=== PATIENT | male | born 1940 | race Caucasian/White ===

== ENCOUNTER → 2018-02-03 16:08 | Outpatient (CLI) | payer MEDICARE, BC, SELFPAY ==
[2018-02-03 16:44] LABS: Add Manual Diff / Slide Review NO; Basophils Percent Auto 0.4 % (0-2); Eosinophils Percent Auto 1.3 % (2-4); Hematocrit 44.6 % (41-53); Hemoglobin 15.3 g/dL (13.5-17.5); Lymphocytes Percent Auto 19.1 % (25-40); Mean Corpuscular HGB Conc 34.3 % (30-36); Mean Corpuscular Hemoglobin 30.4 PG (26-34); Mean Corpuscular Volume 88.7 fL (80-100); Monocytes Percent Auto 9.3 % (3-14); Neutrophils Absolute Auto 5100 /uL (3000-5900); Neutrophils Percent Auto 69.9 % (50-75); Platelet Count 156 X10^3/uL (150-400); Red Blood Cell Count 5.03 X10^6/uL (4.5-5.9); White Blood Cell Count 7.3 X10^3/uL (4.5-11.0)
[2018-02-03 17:57] LABS: Thyroid Stimulating Hormone 3.48 uIU/mL (0.47-4.68)
[2018-02-03 19:38] LABS: Folate 16.1 ng/mL (2.76-20.0); Vitamin B12 375 pg/mL (239-931)
== END ==
PROVIDERS: Family Provider Internal Medicine; PCP Internal Medicine; Visit Provider Student in an Organized Health Care Education/Training Program
DX: R53.83 Other fatigue (principal)
CPT/HCPCS: 36415; 82607; 82746; 84443; 85025; 85045

== ENCOUNTER 2018-02-28 19:41 | Emergency (ER) | payer MEDICARE, BC, SELFPAY ==
[2018-02-28 19:45] VITALS: BP 165/90; PULSE 68; RESP 18; TEMP 37; O2SAT 99; BMI 25.7
--- NOTE | 2018-02-28 20:08 | ED.CHESTPAIN ---
HPI - Chest Pain <Mariah Iniguez PA-C - Last Filed: 02/28/18 22:25> General Chief Complaint: Chest Pain Stated Complaint: LAFT ARM PAIN Time Seen by Provider: 02/28/18 20:08 Source: patient and family Mode of arrival: ambulatory Limitations: no limitations History of Present Illness HPI narrative: This 77-year-old comes in today due to 5 min of ?constricted?, squeezing sensation radiating all the way down his left arm for about 5 min. This started prior to arrival. He states that prior to this, he had done a set of throwing exercises with 15 lb weights, which he just started doing again. He states that he sat down, and the pain started at rest. He did not have any chest pain. He does not have any palpitations. He states that he took a 20 min walk prior to dinner with no problems. He states he does have chronic dyspnea especially with exertion, however this has been going on for at least a couple of months without any change today. 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 He states he is not symptomatic from this but notices on his monitor. He tends to have a little bit of swelling in his right leg more than left. This has not changed recently. He does not have any new pain in the legs. He does not have any nausea or vomiting and states his appetite is good. He has not had abdominal pain, no recent weight gain or other complaints on systems review. Related Data Home Medications Medication Instructions Recorded Confirmed Atorvastatin Calcium (Lipitor) 10 mg PO QDAY #0 03/10/10 COENZYME Q10/VITAMIN E (CO-Q-10 200 mg PO QDAY #0 02/21/13 200mg) Fish Oil 1,000 mg PO TID #0 02/21/13 selenium 100 mcg PO QDAY #0 02/21/13 Allergies Allergy/AdvReac Type Severity Reaction Status Date / Time aspirin [ASPIRIN] Allergy Severe ANEMIA Unverified 11/03/17 11:48 NSAIDS (Non-Steroidal Allergy Severe GI Bleeding Unverified 11/03/17 11:48 Anti-Inflamma [NSAIDS (NON-STEROIDAL ANTI-INFLAMMA] Penicillins Allergy Severe ASTHMA Unverified 11/03/17 11:48 Review of Systems <Mariah Iniguez PA-C - Last Filed: 02/28/18 22:25> Review of Systems All systems reviewed & are unremarkable except as noted in HPI and below Exam <Mariah Iniguez PA-C - Last Filed: 02/28/18 22:25> Narrative Exam Narrative: GENERAL APPEARANCE: Patient sitting comfortably, in no distress. HEENT: EOMI NECK/THYROID: Neck supple, no JVD. LUNGS: Clear to auscultation bilaterally. HEART: Regular rate and rhythm irregular with low-pitched II/ murmur ABDOMEN: Soft, NT, ND, + BS x 4 quadrants EXTREMITIES: No cyanosis, trace edema on the right, none on the left. Small varicosities noted. No calf tenderness NEUROLOGIC: Alert and oriented, normal speech and coordination. MUSCULOSKELETAL: No tenderness over the chest or left shoulder. Able to fully flex and extend the left shoulder without tenderness Initial Vital Signs Initial Vital Signs: Vital Signs Temperature 98.6 F 02/28/18 19:45 Pulse Rate 68 02/28/18 19:45 Respiratory Rate 18 02/28/18 19:45 Blood Pressure 165/90 H 02/28/18 19:45 Pulse Oximetry 99 02/28/18 19:45 <Corky Adkins MD - Last Filed: 03/01/18 02:06> Initial Vital Signs Initial Vital Signs: Vital Signs Temperature 98.6 F 02/28/18 19:45 Pulse Rate 68 02/28/18 19:45 Respiratory Rate 18 02/28/18 19:45 Blood Pressure 165/90 H 02/28/18 19:45 Pulse Oximetry 99 02/28/18 19:45 Scores <Mariah Iniguez PA-C - Last Filed: 02/28/18 22:25> CHADS-VASc Congestive heart failure: no Hypertension: yes Age 75 years or older: yes Diabetes mellitus: yes Stroke, TIA, or TE: no Vascular disease: no Age 65 to 74 years: no Sex category (female): Male CHADS-VASc Score: 4 Course <Mariah Iniguez PA-C - Last Filed: 02/28/18 22:25> Additional Information: I reviewed workup and findings with Dr. Adkins who is in agreement that patient may follow up as an outpatient. Patient's brief symptoms completely resolved prior to arrival. He states that he is feeling well currently. Workup is negative aside from atrial fibrillation on EKG which per his history appears to be new since previous hospitalization. He also describes intermittent low pulse rates at home on his monitor though he is asymptomatic from this. We did discuss usual use of anticoagulation given his chads Vasc score of 4, however he also has a history of severe GI bleed x2 when on ASA. He elects not to start any anticoagulant tonight. He will go to his previously planned appointment with Dr. Kevin on Wednesday and plan to discuss further at that time. He agreed to return if any new or worsening symptoms again in the interim Orders Ordered: ED Orders 02/28/18 20:00 B Type Natriuretic Peptide Stat Complete Blood Count AUTO DIFF Stat Comprehensive Metabolic Panel Stat Troponin & CK Cardiac Panel Stat 02/28/18 20:21 XR chest 1V Stat Vital Signs - 8 hr 02/28/18 19:45 02/28/18 20:56 02/28/18 21:40 Temperature 98.6 F Pulse Rate 68 67 64 Respiratory Rate 18 Blood Pressure 165/90 H 141/84 H Blood Pressure [Left Arm] 151/85 H Pulse Oximetry 99 95 98 <Corky Adkins MD - Last Filed: 03/01/18 02:06> Orders Ordered: ED Orders 02/28/18 20:00 B Type Natriuretic Peptide Stat Complete Blood Count AUTO DIFF Stat Comprehensive Metabolic Panel Stat Troponin & CK Cardiac Panel Stat 02/28/18 20:21 XR chest 1V Stat Vital Signs - 8 hr 02/28/18 19:45 02/28/18 20:56 02/28/18 21:40 Temperature 98.6 F Pulse Rate 68 67 64 Respiratory Rate 18 Blood Pressure 165/90 H 141/84 H Blood Pressure [Left Arm] 151/85 H Pulse Oximetry 99 95 98 MDM - Chest Pain <Mariah Iniguez PA-C - Last Filed: 02/28/18 22:25> Lab Data Attestation: I reviewed the patient's lab results. Result diagrams: 02/28/18 20:00 02/28/18 20:00 Lab Results 02/28/18 02/28/18 Range/Units 20:00 20:00 WBC 7.5 (4.5-11.0) X10^3/uL RBC 5.26 (4.5-5.9) X10^6/uL Hgb 16.0 (13.5-17.5) g/dL Hct 46.3 (41-53) % MCV 87.9 (80-100) fL MCH 30.4 (26-34) PG MCHC 34.6 (30-36) % RDW 14.3 (11.6-14.8) % Plt Count 173 (150-400) X10^3/uL Neut % (Auto) 66.3 (50-75) % Lymph % (Auto) 22.6 L (25-40) % [place] % (Auto) 9.0 (3-14) % Eos % (Auto) 1.6 L (2-4) % Baso % (Auto) 0.5 (0-2) % Neut # (Auto) 5000 (2230-4280) /uL Sodium 140 (137-145) mmol/L Potassium 4.2 (3.4-5.1) mmol/L Chloride 100 (98-107) mmol/L Carbon Dioxide 27 (22-32) mmol/L BUN 28 H (9-20) mg/dL Creatinine 1.00 (0.66-1.25) mg/dL Estimated GFR > 60.0 (>60) mL/min BUN/Creatinine Ratio 28.0 H (6-22) Glucose 119 H (80-110) mg/dL Calcium 9.4 (8.4-10.2) mg/dL Total Bilirubin 0.6 (0.2-1.3) mg/dL AST 33 (17-59) IU/L ALT 31 (21-72) IU/L Alkaline Phosphatase 73 (38-126) U/L Total Creatine Kinase 132 (55-170) U/L CK-MB (CK-2) 3.19 H (<2.37) ng/mL CK-MB (CK-2) Rel Index 2.4 (1.5-5.0) % Troponin I 0.013 (0.01-0.034) ng/mL B-Natriuretic Peptide 108.0 H (<100) Total Protein 7.1 (6.3-8.2) g/dL Albumin 4.6 (3.5-5.0) g/dL Globulin 2.5 (1.7-4.1) g/dL Albumin/Globulin Ratio 1.8 (1.0-2.8) Imaging Data Chest x-ray: Radiologist's impression: View Report History Print [address] [address] XRay Report Signed Patient: Mk Pinzon MR#: [id number] : 1940 Acct:[id number] Age/Sex: 77 / M Date of Service: 02/28/18 Loc: ED Accession Number: [id number] Procedure: XR chest 1V Ordering Provider: Mariah Iniguez P.A-C PROCEDURE: XR CHEST 1V INDICATIONS: L. UE pain, cardiac history TECHNIQUE: One view of the chest was acquired. COMPARISON: [facility], , CHEST 2 VIEW, 08/19/2016, 11:58. [facility], , CHEST 1 VIEW, 07/28/2017, 17:56. FINDINGS: Surgical changes and devices: Sternotomy wires. Lungs and pleura: No pleural effusions or pneumothorax. Lungs are clear. High density calcified granuloma projecting in the left apex is grossly unchanged. Mediastinum: Mediastinal contours appear normal. Heart size is normal. Bones and chest wall: No suspicious bony lesions. Overlying soft tissues appear unremarkable. IMPRESSION: No acute disease. Dictated by: Partha Bell M.D. on 02/28/2018 at 20:38 Approved by: Partha Bell M.D. on 02/28/2018 at 20:39 ECG Data Attestation: I personally reviewed and interpreted this ECG as follows: (Atrial fibrillation with rate 66, chronic ST changes. EKG 2. Regular supraventricular rhythm with rate 60s 3) Prior ECG tracings: available for review <Corky Adkins MD - Last Filed: 03/01/18 02:06> Lab Data Lab Results 02/28/18 02/28/18 Range/Units 20:00 20:00 WBC 7.5 (4.5-11.0) X10^3/uL RBC 5.26 (4.5-5.9) X10^6/uL Hgb 16.0 (13.5-17.5) g/dL Hct 46.3 (41-53) % MCV 87.9 (80-100) fL MCH 30.4 (26-34) PG MCHC 34.6 (30-36) % RDW 14.3 (11.6-14.8) % Plt Count 173 (150-400) X10^3/uL Neut % (Auto) 66.3 (50-75) % Lymph % (Auto) 22.6 L (25-40) % [place] % (Auto) 9.0 (3-14) % Eos % (Auto) 1.6 L (2-4) % Baso % (Auto) 0.5 (0-2) % Neut # (Auto) 5000 (6467-3205) /uL Sodium 140 (137-145) mmol/L Potassium 4.2 (3.4-5.1) mmol/L Chloride 100 (98-107) mmol/L Carbon Dioxide 27 (22-32) mmol/L BUN 28 H (9-20) mg/dL Creatinine 1.00 (0.66-1.25) mg/dL Estimated GFR > 60.0 (>60) mL/min BUN/Creatinine Ratio 28.0 H (6-22) Glucose 119 H (80-110) mg/dL Calcium 9.4 (8.4-10.2) mg/dL Total Bilirubin 0.6 (0.2-1.3) mg/dL AST 33 (17-59) IU/L ALT 31 (21-72) IU/L Alkaline Phosphatase 73 (38-126) U/L Total Creatine Kinase 132 (55-170) U/L CK-MB (CK-2) 3.19 H (<2.37) ng/mL CK-MB (CK-2) Rel Index 2.4 (1.5-5.0) % Troponin I 0.013 (0.01-0.034) ng/mL B-Natriuretic Peptide 108.0 H (<100) Total Protein 7.1 (6.3-8.2) g/dL Albumin 4.6 (3.5-5.0) g/dL Globulin 2.5 (1.7-4.1) g/dL Albumin/Globulin Ratio 1.8 (1.0-2.8) Discharge Plan Departure Patient Disposition: Home, Self-Care Clinical Impression: Left arm pain, Atrial fibrillation by electrocardiogram Discharge Date/Time: 02/28/18 21:41 Interventions: ED Discharge Assessment Last Done: 02/28/18 21:40 Instructions: DI for Atrial Fibrillation Activity Restrictions/Additional Instructions: the reason for your left arm pain that you had a little earlier is not clear. It may have been associated with your exercises that you were doing prior to it starting. There is no indication of a new heart problem causing this based on our evaluation tonight however we did notice that you have atrial fibrillation, which is an irregular heartbeat. Since you had a fast heart beat or pulse rate in the past and more recently has been noticing some slow heart rates when you check on her home monitor off and on, it is likely that this has been going on for some time now. As we talked about, this may happen frequently, or not at all in a given day. Usually for people with your risk factors, we used blood thinner type of medication to reduce stroke risk, however after our discussion tonight, you have expressed that you prefer to remain off of these type of medications due to your history of stomach bleeding when you were on aspirin in the past. You had significant bleeding and this is reasonable as well. Please keep your appointment with Dr. Kevin so that you can further assess in light of your previous heart history and determine what type of treatment may be needed. You should follow up here as we talked about if you have any new or acutely worsening symptoms in the interim. Prescriptions: No Action Atorvastatin Calcium (Lipitor) 10 mg PO QDAY Qty: 0 RF: 0 COENZYME Q10/VITAMIN E (CO-Q-10 200mg) 200 mg PO QDAY Qty: 0 RF: 0 Fish Oil 1,000 mg PO TID Qty: 0 RF: 0 selenium 200 MCG tablet 100 mcg PO QDAY Qty: 0 RF: 0 Referrals: Costa Tellez MD [Primary Care Provider] - Stewart Kevin MD [Physician] - <Corky Adkins MD - Last Filed: 03/01/18 02:06> Cosign ED Attending Cosignature Attestation: I was available in the ER for verbal consultation and to physically see the patient if need be. I agree with the evaluation and treatment plan.
--- NOTE | 2018-02-28 20:21 | DI.RAD.S_ITS ---
PROCEDURE: XR CHEST 1V INDICATIONS: L. UE pain, cardiac history TECHNIQUE: One view of the chest was acquired. COMPARISON: [facility], , CHEST 2 VIEW, 08/19/2016, 11:58. [facility], , CHEST 1 VIEW, 07/28/2017, 17:56. FINDINGS: Surgical changes and devices: Sternotomy wires. Lungs and pleura: No pleural effusions or pneumothorax. Lungs are clear. High density calcified granuloma projecting in the left apex is grossly unchanged. Mediastinum: Mediastinal contours appear normal. Heart size is normal. Bones and chest wall: No suspicious bony lesions. Overlying soft tissues appear unremarkable. IMPRESSION: No acute disease. Dictated by: Partha Bell M.D. on 02/28/2018 at 20:38 Approved by: Partha Bell M.D. on 02/28/2018 at 20:39
[2018-02-28 20:31] LABS: Add Manual Diff / Slide Review NO; Basophils Percent Auto 0.5 % (0-2); Eosinophils Percent Auto 1.6 % (2-4); Hematocrit 46.3 % (41-53); Lymphocytes Percent Auto 22.6 % (25-40); Mean Corpuscular HGB Conc 34.6 % (30-36); Mean Corpuscular Hemoglobin 30.4 PG (26-34); Mean Corpuscular Volume 87.9 fL (80-100); Neutrophils Absolute Auto 5000 /uL (3000-5900); Neutrophils Percent Auto 66.3 % (50-75); Platelet Count 173 X10^3/uL (150-400); Red Blood Cell Count 5.26 X10^6/uL (4.5-5.9); Red Cell Distribution Width 14.3 % (11.6-14.8); White Blood Cell Count 7.5 X10^3/uL (4.5-11.0)
[2018-02-28 20:38] LABS: Alanine Aminotransferase 31 IU/L (21-72); Albumin 4.6 g/dL (3.5-5.0); Albumin Globulin Ratio 1.8 (1.0-2.8); Alkaline Phosphatase 73 U/L (38-126); Aspartate Aminotransferase 33 IU/L (17-59); Bilirubin Total 0.6 mg/dL (0.2-1.3); Blood Urea Nitrogen 28 mg/dL (9-20); Calcium 9.4 mg/dL (8.4-10.2); Carbon Dioxide 27 mmol/L (22-32); Chloride 100 mmol/L (98-107); Creatine Kinase 132 U/L (55-170); Estimated Glomerular Filt Rate > 60.0 mL/min (>60); Globulin 2.5 g/dL (1.7-4.1); Glucose 119 mg/dL (80-110); HEMOLYSIS 34 (0-50); Potassium 4.2 mmol/L (3.4-5.1); Sodium 140 mmol/L (137-145); Total Protein 7.1 g/dL (6.3-8.2)
--- NOTE | 2018-02-28 20:42 | ED_ITS ---
HPI - Chest Pain <Mariah Iniguez PA-C - Last Filed: 02/28/18 22:25> General Chief Complaint: Chest Pain Stated Complaint: LAFT ARM PAIN Time Seen by Provider: 02/28/18 20:08 Source: patient and family Mode of arrival: ambulatory Limitations: no limitations History of Present Illness HPI narrative: This 77-year-old comes in today due to 5 min of ?constricted?, squeezing sensation radiating all the way down his left arm for about 5 min. This started prior to arrival. He states that prior to this, he had done a set of throwing exercises with 15 lb weights, which he just started doing again. He states that he sat down, and the pain started at rest. He did not have any chest pain. He does not have any palpitations. He states that he took a 20 min walk prior to dinner with no problems. He states he does have chronic dyspnea especially with exertion, however this has been going on for at least a couple of months without any change today. 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 He states he is not symptomatic from this but notices on his monitor. He tends to have a little bit of swelling in his right leg more than left. This has not changed recently. He does not have any new pain in the legs. He does not have any nausea or vomiting and states his appetite is good. He has not had abdominal pain, no recent weight gain or other complaints on systems review. Related Data Home Medications Medication Instructions Recorded Confirmed Atorvastatin Calcium (Lipitor) 10 mg PO QDAY #0 03/10/10 COENZYME Q10/VITAMIN E (CO-Q-10 200 mg PO QDAY #0 02/21/13 200mg) Fish Oil 1,000 mg PO TID #0 02/21/13 selenium 100 mcg PO QDAY #0 02/21/13 Allergies Allergy/AdvReac Type Severity Reaction Status Date / Time aspirin [ASPIRIN] Allergy Severe ANEMIA Unverified 11/03/17 11:48 NSAIDS (Non-Steroidal Allergy Severe GI Bleeding Unverified 11/03/17 11:48 Anti-Inflamma [NSAIDS (NON-STEROIDAL ANTI-INFLAMMA] Penicillins Allergy Severe ASTHMA Unverified 11/03/17 11:48 Review of Systems <Mariah Iniguez PA-C - Last Filed: 02/28/18 22:25> Review of Systems All systems reviewed & are unremarkable except as noted in HPI and below Exam <Mariah Iniguez PA-C - Last Filed: 02/28/18 22:25> Narrative Exam Narrative: GENERAL APPEARANCE: Patient sitting comfortably, in no distress. HEENT: EOMI NECK/THYROID: Neck supple, no JVD. LUNGS: Clear to auscultation bilaterally. HEART: Regular rate and rhythm irregular with low-pitched II/ murmur ABDOMEN: Soft, NT, ND, + BS x 4 quadrants EXTREMITIES: No cyanosis, trace edema on the right, none on the left. Small varicosities noted. No calf tenderness NEUROLOGIC: Alert and oriented, normal speech and coordination. MUSCULOSKELETAL: No tenderness over the chest or left shoulder. Able to fully flex and extend the left shoulder without tenderness Initial Vital Signs Initial Vital Signs: Vital Signs Temperature 98.6 F 02/28/18 19:45 Pulse Rate 68 02/28/18 19:45 Respiratory Rate 18 02/28/18 19:45 Blood Pressure 165/90 H 02/28/18 19:45 Pulse Oximetry 99 02/28/18 19:45 <Corky Adkins MD - Last Filed: 03/01/18 02:06> Initial Vital Signs Initial Vital Signs: Vital Signs Temperature 98.6 F 02/28/18 19:45 Pulse Rate 68 02/28/18 19:45 Respiratory Rate 18 02/28/18 19:45 Blood Pressure 165/90 H 02/28/18 19:45 Pulse Oximetry 99 02/28/18 19:45 Scores <Mariah Iniguez PA-C - Last Filed: 02/28/18 22:25> CHADS-VASc Congestive heart failure: no Hypertension: yes Age 75 years or older: yes Diabetes mellitus: yes Stroke, TIA, or TE: no Vascular disease: no Age 65 to 74 years: no Sex category (female): Male CHADS-VASc Score: 4 Course <Mariah Iniguez PA-C - Last Filed: 02/28/18 22:25> Additional Information: I reviewed workup and findings with Dr. Adkins who is in agreement that patient may follow up as an outpatient. Patient's brief symptoms completely resolved prior to arrival. He states that he is feeling well currently. Workup is negative aside from atrial fibrillation on EKG which per his history appears to be new since previous hospitalization. He also describes intermittent low pulse rates at home on his monitor though he is asymptomatic from this. We did discuss usual use of anticoagulation given his chads Vasc score of 4, however he also has a history of severe GI bleed x2 when on ASA. He elects not to start any anticoagulant tonight. He will go to his previously planned appointment with Dr. Kevin on Wednesday and plan to discuss further at that time. He agreed to return if any new or worsening symptoms again in the interim Orders Ordered: ED Orders 02/28/18 20:00 B Type Natriuretic Peptide Stat Complete Blood Count AUTO DIFF Stat Comprehensive Metabolic Panel Stat Troponin & CK Cardiac Panel Stat 02/28/18 20:21 XR chest 1V Stat Vital Signs - 8 hr 02/28/18 19:45 02/28/18 20:56 02/28/18 21:40 Temperature 98.6 F Pulse Rate 68 67 64 Respiratory Rate 18 Blood Pressure 165/90 H 141/84 H Blood Pressure [Left Arm] 151/85 H Pulse Oximetry 99 95 98 <Corky Adkins MD - Last Filed: 03/01/18 02:06> Orders Ordered: ED Orders 02/28/18 20:00 B Type Natriuretic Peptide Stat Complete Blood Count AUTO DIFF Stat Comprehensive Metabolic Panel Stat Troponin & CK Cardiac Panel Stat 02/28/18 20:21 XR chest 1V Stat Vital Signs - 8 hr 02/28/18 19:45 02/28/18 20:56 02/28/18 21:40 Temperature 98.6 F Pulse Rate 68 67 64 Respiratory Rate 18 Blood Pressure 165/90 H 141/84 H Blood Pressure [Left Arm] 151/85 H Pulse Oximetry 99 95 98 MDM - Chest Pain <Mariah Iniguez PA-C - Last Filed: 02/28/18 22:25> Lab Data Attestation: I reviewed the patient's lab results. Result diagrams: 02/28/18 20:00 02/28/18 20:00 Lab Results 02/28/18 02/28/18 Range/Units 20:00 20:00 WBC 7.5 (4.5-11.0) X10^3/uL RBC 5.26 (4.5-5.9) X10^6/uL Hgb 16.0 (13.5-17.5) g/dL Hct 46.3 (41-53) % MCV 87.9 (80-100) fL MCH 30.4 (26-34) PG MCHC 34.6 (30-36) % RDW 14.3 (11.6-14.8) % Plt Count 173 (150-400) X10^3/uL Neut % (Auto) 66.3 (50-75) % Lymph % (Auto) 22.6 L (25-40) % Mercer % (Auto) 9.0 (3-14) % Eos % (Auto) 1.6 L (2-4) % Baso % (Auto) 0.5 (0-2) % Neut # (Auto) 5000 (4477-0231) /uL Sodium 140 (137-145) mmol/L Potassium 4.2 (3.4-5.1) mmol/L Chloride 100 (98-107) mmol/L Carbon Dioxide 27 (22-32) mmol/L BUN 28 H (9-20) mg/dL Creatinine 1.00 (0.66-1.25) mg/dL Estimated GFR > 60.0 (>60) mL/min BUN/Creatinine Ratio 28.0 H (6-22) Glucose 119 H (80-110) mg/dL Calcium 9.4 (8.4-10.2) mg/dL Total Bilirubin 0.6 (0.2-1.3) mg/dL AST 33 (17-59) IU/L ALT 31 (21-72) IU/L Alkaline Phosphatase 73 (38-126) U/L Total Creatine Kinase 132 (55-170) U/L CK-MB (CK-2) 3.19 H (<2.37) ng/mL CK-MB (CK-2) Rel Index 2.4 (1.5-5.0) % Troponin I 0.013 (0.01-0.034) ng/mL B-Natriuretic Peptide 108.0 H (<100) Total Protein 7.1 (6.3-8.2) g/dL Albumin 4.6 (3.5-5.0) g/dL Globulin 2.5 (1.7-4.1) g/dL Albumin/Globulin Ratio 1.8 (1.0-2.8) Imaging Data Chest x-ray: Radiologist's impression: View Report History Print [address] [address] XRay Report Signed Patient: Mk Pinzon MR#: [id number] : 1940 Acct:[id number] Age/Sex: 77 / M Date of Service: 02/28/18 Loc: ED Accession Number: [id number] Procedure: XR chest 1V Ordering Provider: Mariah Iinguez P.A-C PROCEDURE: XR CHEST 1V INDICATIONS: L. UE pain, cardiac history TECHNIQUE: One view of the chest was acquired. COMPARISON: [facility], , CHEST 2 VIEW, 08/19/2016, 11:58. [facility], , CHEST 1 VIEW, 07/28/2017, 17:56. FINDINGS: Surgical changes and devices: Sternotomy wires. Lungs and pleura: No pleural effusions or pneumothorax. Lungs are clear. High density calcified granuloma projecting in the left apex is grossly unchanged. Mediastinum: Mediastinal contours appear normal. Heart size is normal. Bones and chest wall: No suspicious bony lesions. Overlying soft tissues appear unremarkable. IMPRESSION: No acute disease. Dictated by: Partha Bell M.D. on 02/28/2018 at 20:38 Approved by: Partha Bell M.D. on 02/28/2018 at 20:39 ECG Data Attestation: I personally reviewed and interpreted this ECG as follows: (Atrial fibrillation with rate 66, chronic ST changes. EKG 2. Regular supraventricular rhythm with rate 60s 3) Prior ECG tracings: available for review <Corky Adkins MD - Last Filed: 03/01/18 02:06> Lab Data Lab Results 02/28/18 02/28/18 Range/Units 20:00 20:00 WBC 7.5 (4.5-11.0) X10^3/uL RBC 5.26 (4.5-5.9) X10^6/uL Hgb 16.0 (13.5-17.5) g/dL Hct 46.3 (41-53) % MCV 87.9 (80-100) fL MCH 30.4 (26-34) PG MCHC 34.6 (30-36) % RDW 14.3 (11.6-14.8) % Plt Count 173 (150-400) X10^3/uL Neut % (Auto) 66.3 (50-75) % Lymph % (Auto) 22.6 L (25-40) % Mercer % (Auto) 9.0 (3-14) % Eos % (Auto) 1.6 L (2-4) % Baso % (Auto) 0.5 (0-2) % Neut # (Auto) 5000 (7292-4535) /uL Sodium 140 (137-145) mmol/L Potassium 4.2 (3.4-5.1) mmol/L Chloride 100 (98-107) mmol/L Carbon Dioxide 27 (22-32) mmol/L BUN 28 H (9-20) mg/dL Creatinine 1.00 (0.66-1.25) mg/dL Estimated GFR > 60.0 (>60) mL/min BUN/Creatinine Ratio 28.0 H (6-22) Glucose 119 H (80-110) mg/dL Calcium 9.4 (8.4-10.2) mg/dL Total Bilirubin 0.6 (0.2-1.3) mg/dL AST 33 (17-59) IU/L ALT 31 (21-72) IU/L Alkaline Phosphatase 73 (38-126) U/L Total Creatine Kinase 132 (55-170) U/L CK-MB (CK-2) 3.19 H (<2.37) ng/mL CK-MB (CK-2) Rel Index 2.4 (1.5-5.0) % Troponin I 0.013 (0.01-0.034) ng/mL B-Natriuretic Peptide 108.0 H (<100) Total Protein 7.1 (6.3-8.2) g/dL Albumin 4.6 (3.5-5.0) g/dL Globulin 2.5 (1.7-4.1) g/dL Albumin/Globulin Ratio 1.8 (1.0-2.8) Discharge Plan Departure Patient Disposition: Home, Self-Care Clinical Impression: Left arm pain, Atrial fibrillation by electrocardiogram Discharge Date/Time: 02/28/18 21:41 Interventions: ED Discharge Assessment Last Done: 02/28/18 21:40 Instructions: DI for Atrial Fibrillation Activity Restrictions/Additional Instructions: the reason for your left arm pain that you had a little earlier is not clear. It may have been associated with your exercises that you were doing prior to it starting. There is no indication of a new heart problem causing this based on our evaluation tonight however we did notice that you have atrial fibrillation , which is an irregular heartbeat. Since you had a fast heart beat or pulse rate in the past and more recently has been noticing some slow heart rates when you check on her home monitor off and on, it is likely that this has been going on for some time now. As we talked about, this may happen frequently, or not at all in a given day. Usually for people with your risk factors, we used blood thinner type of medication to reduce stroke risk, however after our discussion tonight, you have expressed that you prefer to remain off of these type of medications due to your history of stomach bleeding when you were on aspirin in the past. You had significant bleeding and this is reasonable as well. Please keep your appointment with Dr. Kevin so that you can further assess in light of your previous heart history and determine what type of treatment may be needed. You should follow up here as we talked about if you have any new or acutely worsening symptoms in the interim. Prescriptions: No Action Atorvastatin Calcium (Lipitor) 10 mg PO QDAY Qty: 0 RF: 0 COENZYME Q10/VITAMIN E (CO-Q-10 200mg) 200 mg PO QDAY Qty: 0 RF: 0 Fish Oil 1,000 mg PO TID Qty: 0 RF: 0 selenium 200 MCG tablet 100 mcg PO QDAY Qty: 0 RF: 0 Referrals: Costa Tellez MD [Primary Care Provider] - Stewart Kevin MD [Physician] - <Corky Adkins MD - Last Filed: 03/01/18 02:06> Cosign ED Attending Cosignature Attestation: I was available in the ER for verbal consultation and to physically see the patient if need be. I agree with the evaluation and treatment plan.
[2018-02-28 20:50] LABS: Troponin I 0.013 ng/mL (0.01-0.034)
[2018-02-28 20:54] LABS: CKMB % Relative Index 2.4 % (1.5-5.0); Creatine Kinase MB 3.19 ng/mL (<2.37)
[2018-02-28 20:56] VITALS: BP 151/85; PULSE 67; RESP 18; O2SAT 95
[2018-02-28 21:40] VITALS: BP 141/84; PULSE 64; RESP 18; O2SAT 98
== END 2018-02-28 21:41 | disposition home or self-care (01) ==
PROVIDERS: Emergency Provider Internal Medicine; Family Provider Internal Medicine; PCP Internal Medicine
DX: M79.602 Pain in left arm (principal); I48.91 Unspecified atrial fibrillation
CPT/HCPCS: 36415; 36591; 71045; 80053; 82550; 82553; 83880; 84484; 85025; 93005; 93010; 93041; 99283; 99285

== ENCOUNTER → 2018-05-26 09:51 | Outpatient (CLI) | payer MEDICARE, BC, SELFPAY ==
[2018-05-26 10:44] LABS: Add Manual Diff / Slide Review NO; Basophils Percent Auto 0.4 % (0-2); Hematocrit 47.5 % (41-53); Hemoglobin 16.4 g/dL (13.5-17.5); Lymphocytes Percent Auto 16.8 % (25-40); Mean Corpuscular HGB Conc 34.5 % (30-36); Mean Corpuscular Hemoglobin 30.3 PG (26-34); Mean Corpuscular Volume 87.8 fL (80-100); Monocytes Percent Auto 8.2 % (3-14); Neutrophils Absolute Auto 5200 /uL (3000-5900); Neutrophils Percent Auto 73.6 % (50-75); Platelet Count 187 X10^3/uL (150-400); Red Blood Cell Count 5.41 X10^6/uL (4.5-5.9); Red Cell Distribution Width 13.8 % (11.6-14.8); White Blood Cell Count 7.1 X10^3/uL (4.5-11.0)
[2018-05-26 11:11] LABS: Hemoglobin A1C% w Est Avg Glu 7.6 % (4.0-6.0)
[2018-05-26 12:53] LABS: Alanine Aminotransferase 36 IU/L (21-72); Albumin 4.7 g/dL (3.5-5.0); Albumin Globulin Ratio 1.7 (1.0-2.8); Alkaline Phosphatase 69 U/L (38-126); Aspartate Aminotransferase 35 IU/L (17-59); BUN Creatinine Ratio 23.3 (6-22); Bilirubin Total 0.5 mg/dL (0.2-1.3); Blood Urea Nitrogen 21 mg/dL (9-20); Calcium 9.1 mg/dL (8.4-10.2); Carbon Dioxide 27 mmol/L (22-32); Chloride 98 mmol/L (98-107); Estimated Glomerular Filt Rate > 60.0 mL/min (>60); Globulin 2.7 g/dL (1.7-4.1); Glucose 171 mg/dL (80-110); HEMOLYSIS < 15 (0-50); Sodium 141 mmol/L (137-145); Total Protein 7.4 g/dL (6.3-8.2)
[2018-05-26 13:17] LABS: Prostate Specific Antigen Scrn 7.07 ng/mL (0.1-4.0)
== END ==
PROVIDERS: PCP Internal Medicine; Visit Provider Internal Medicine
DX: Z00.00 Encounter for general adult medical examination without abnormal findings (principal); D50.0 Iron deficiency anemia secondary to blood loss (chronic); E11.9 Type 2 diabetes mellitus without complications; Z12.5 Encounter for screening for malignant neoplasm of prostate
CPT/HCPCS: 36415; 80053; 83036; 85025; G0103

== ENCOUNTER → 2018-08-25 10:36 | Outpatient (CLI) | payer MEDICARE, SELFPAY ==
[2018-08-25 11:25] LABS: Add Manual Diff / Slide Review NO; Basophils Absolute Auto 0 /uL (0-100); Basophils Percent Auto 0.4 % (0-2); Eosinophils Absolute Auto 100 /uL (0-450); Eosinophils Percent Auto 1.1 % (2-4); Hematocrit 45.5 % (41-53); Hemoglobin 15.6 g/dL (13.5-17.5); Lymphocytes Absolute Auto 1100 /uL (1100-4500); Lymphocytes Percent Auto 16.5 % (25-40); Mean Corpuscular HGB Conc 34.3 % (30-36); Mean Corpuscular Hemoglobin 30.7 PG (26-34); Mean Corpuscular Volume 89.5 fL (80-100); Monocytes Absolute Auto 600 /uL (0-900); Monocytes Percent Auto 9.2 % (3-14); Neutrophils Absolute Auto 5000 /uL (1500-7000); Neutrophils Percent Auto 72.8 % (50-75); Platelet Count 190 X10^3/uL (150-400); Red Blood Cell Count 5.09 X10^6/uL (4.5-5.9); Red Cell Distribution Width 13.4 % (11.6-14.8); White Blood Cell Count 6.8 X10^3/uL (4.5-11.0)
[2018-08-25 11:35] LABS: BUN Creatinine Ratio 27.8 (6-22); Blood Urea Nitrogen 25 mg/dL (9-20); Calcium 9.2 mg/dL (8.4-10.2); Carbon Dioxide 29 mmol/L (22-32); Chloride 99 mmol/L (98-107); Estimated Glomerular Filt Rate > 60.0 mL/min (>60); Glucose 141 mg/dL (80-110); HEMOLYSIS < 15 (0-50); Potassium 4.2 mmol/L (3.4-5.1); Sodium 138 mmol/L (137-145)
[2018-08-25 11:44] LABS: Hemoglobin A1C% w Est Avg Glu 7.1 % (4.0-6.0)
[2018-08-25 12:18] LABS: HEMOLYSIS < 15 (0-50); Iron 100 ug/dL (49-181)
[2018-08-25 12:28] LABS: Percent Iron Saturation 31 % (20-50); Total Iron Binding Capacity 320 ug/dL (261-462); Transferrin 246 mg/dL (206-381)
== END ==
PROVIDERS: PCP Internal Medicine; Visit Provider Internal Medicine
DX: E11.9 Type 2 diabetes mellitus without complications (principal); D50.0 Iron deficiency anemia secondary to blood loss (chronic); R97.20 Elevated prostate specific antigen [PSA]
CPT/HCPCS: 36415; 80048; 83036; 83540; 83550; 84153; 85025

== ENCOUNTER → 2018-12-12 07:47 | Outpatient (CLI) | payer MEDICARE, SELFPAY ==
[2018-12-12 09:35] LABS: Blood Urea Nitrogen 24 mg/dL (9-20); Calcium 9.5 mg/dL (8.4-10.2); Carbon Dioxide 28 mmol/L (22-32); Chloride 100 mmol/L (98-107); Estimated Glomerular Filt Rate > 60.0 mL/min (>60); Glucose 192 mg/dL (80-110); HEMOLYSIS < 15 (0-50); Magnesium 2.2 mg/dL (1.6-2.3); Potassium 3.9 mmol/L (3.4-5.1); Sodium 138 mmol/L (137-145)
[2018-12-12 10:02] LABS: Thyroid Stimulating Hormone 3.01 uIU/mL (0.47-4.68)
== END ==
PROVIDERS: Family Provider Internal Medicine; PCP Internal Medicine; Visit Provider Physician Assistant
DX: I49.5 Sick sinus syndrome (principal)
CPT/HCPCS: 36415; 80048; 83735; 84443

== ENCOUNTER → 2018-12-13 14:58 | Outpatient (CLI) | payer MEDICARE, SELFPAY ==
--- NOTE | 2018-12-13 | DI.ECHO.S_ITS ---
[facility]---------+ [facility] +---------+ : : [address] [place] : : : : [id number] : : : : Phone: [phone]+ Echocardiogram Report + + :Name: NAVDEEP SALMERON Study Date: 12/13/2018 Height: 70 in : [id number] Weight: 190 lb : : Gender: Male BSA: 2.0 m2 : :: 1940 Age: 78 yrs BP: 145/80 mmHg: :Reason For Study: sick sinus syndrome : : Performed By: Oriana Page : :Referring: [email or web address] : + + Interpretation Summary The left ventricular cavity is small. The ejection fraction is estimated to be 65-70%. There has been no significant change in LVEF since the previous study. The LVOT velocity is 3.9 m/s. Previously it was about 2.8 m/s with Valsalva. 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 MV E/A: 0.61 Med Peak E' Jaquan: 3.6 cm/sec E/E' med: 32.1 The right ventricle is normal in size and function. There is a calcific nodule in the posterior MV annulus seen on the prior exams as well. There is mild mitral regurgitation. No significant mitral valve stenosis. MV mean P.4 mmHg The non-coronary cusp appears to be thickened, calcified and has restricted movement however no significant aortic stenosis seen. The IVC is of normal diameter and collapses greater than 50% with a sniff. This suggests a low right atrial pressure of 3 mm Hg. Procedure: A two-dimensional transthoracic echocardiogram with color flow and Doppler was performed. The study quality was technically adequate. Comparison is made with the echocardiogram of 07/29/2017. The patient was in normal sinus rhythm during the exam. Left Ventricle: The left ventricular cavity is small. The LVOT velocity is 3.9 m/s. The left ventricular outflow velocity with valsalva is 2.72. There is moderate proximal septal thickening noted. Left ventricular wall thickness is mild-moderately increased. 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 There is no thrombus. The ejection fraction is estimated to be 65-70%. There has been no significant change since the previous study. There are no focal wall motion abnormalities. MV E/A: 0.61 Med Peak E' Jaquan: 3.6 cm/sec E/E' med: 32.1. Right Ventricle: The right ventricle is normal in size and function. There is a pacemaker lead in the right ventricle. This is improved compared to the previous study. Atria: The left atrium is moderately dilated. The left atrium has mildly increased in size since the prior echo exam. Right atrial size is normal. There is no Doppler evidence for an interatrial shunt. Mitral Valve: There is a calcific nodule in the posterior MV annulus seen on the prior exams as well. There is systolic anterior motion of the chordal apparatus. The mitral valve leaflets appear mildly thickened, but open well. No significant mitral valve stenosis. MV mean P.4 mmHg. There is mild mitral regurgitation. Aortic Valve: The non-coronary cusp appears to be thickened, calcified and has restricted movement however no significant aortic stenosis seen. The aortic valve is trileaflet. The aortic valve is mildly calcified. There is no aortic valve stenosis. There is trace aortic regurgitation. Tricuspid Valve: The tricuspid valve is normal. There is trace tricuspid regurgitation. The right ventricular systolic pressure is estimated to be at least 26 mmHg based on an estimated right atrial pressure of 3 mm Hg. Pulmonic Valve: The pulmonic valve is not well visualized. There is trace pulmonic regurgitation. Great Vessels: The aortic root is normal size. The ascending aorta is normal in size. The pulmonary is not well visualized. The IVC is of normal diameter and collapses greater than 50% with a sniff. This suggests a low right atrial pressure of 3 mm Hg. Pericardium/ Pleura There is no pericardial effusion. There is no pleural effusion. MMode/2D Measurements & Calculations LVIDd: 3.9 cm LVOT diam: 2.0 cm LVIDs: 2.3 cm Ao root diam: 3.5 cm FS: 42.1 % asc Aorta Diam: 3.3 cm EPSS: 0.28 cm IVSd: 1.3 cm LVPWd: 1.2 cm LV call. diameter/BSA (cm/m^2): 1.9 LV sys. diameter/BSA (cm/m^2): 1.1 LA A2 area: 26.7 cm2 RA long axis: 5.8 cm LA A4 area: 27.8 cm2 RA area: 20.0 cm2 LA length (vol): 6.6 cm RA vol: 58.8 ml LA vol: 95.5 ml RA : 28.8 ml/m2 LA vol index: 46.7 ml/m2 IVC diam: 1.7 cm RVD1 (basal): 4.2 cm TAPSE: 1.9 cm Doppler Measurements & Calculations MV E max jaquan: 115.8 cm/sec TR max jaquan: 241.5 cm/sec MV A max jaquan: 188.7 cm/sec TR max P.3 mmHg MV E/A: 0.61 PA V2 max: 62.3 cm/sec Med Peak E' Jaquan: 3.6 cm/sec PA V2 mean: 41.3 cm/sec E/E' med: 32.1 PA mean P.79 mmHg Lat Peak E' Jaquan: 7.7 cm/sec PA Accel Time: 0.12 sec E/E' lat: 15.0 E/e' average: 23.5 MV dec time: 0.33 sec MV P1/2t: 96.5 msec MV V2 mean: 93.6 cm/sec MV P1/2t max jaquan: 115.8 cm/sec MV mean P.4 mmHg MVA(P1/2t): 2.3 cm2 MV V2 VTI: 48.2 cm Reading Physician:ALYSSA
== END ==
PROVIDERS: Family Provider Internal Medicine; PCP Internal Medicine; Visit Provider Physician Assistant
DX: I34.0 Nonrheumatic mitral (valve) insufficiency (principal); I49.5 Sick sinus syndrome
CPT/HCPCS: 93306

== ENCOUNTER → 2019-06-20 06:55 | Outpatient (CLI) | payer MEDICARE, SELFPAY ==
[2019-06-20 08:17] LABS: Alanine Aminotransferase 29 IU/L (<50); Albumin 4.5 g/dL (3.5-5.0); Albumin Globulin Ratio 1.9 (1.0-2.8); Alkaline Phosphatase 64 U/L (38-126); Aspartate Aminotransferase 30 IU/L (17-59); Bilirubin Total 0.7 mg/dL (0.2-1.3); Blood Urea Nitrogen 19 mg/dL (9-20); Calcium 9.4 mg/dL (8.4-10.2); Carbon Dioxide 31 mmol/L (22-32); Chloride 101 mmol/L (98-107); Cholesterol 140 mg/dL (140-199); Estimated Glomerular Filt Rate > 60.0 mL/min (>60); Globulin 2.4 g/dL (1.7-4.1); Glucose 152 mg/dL (80-110); HDL Cholesterol 38 mg/dL (40-60); HEMOLYSIS < 15 (0-50); LDL Cholesterol Calculated 75 mg/dL (<100); Potassium 4.3 mmol/L (3.4-5.1); Sodium 141 mmol/L (137-145); Total Protein 6.9 g/dL (6.3-8.2); Triglycerides 137 mg/dL (35-150)
== END ==
PROVIDERS: Family Provider Internal Medicine; PCP Internal Medicine; Visit Provider Internal Medicine Cardiovascular Disease
DX: I10 Essential (primary) hypertension (principal)
CPT/HCPCS: 36415; 80053; 80061

== ENCOUNTER → 2020-04-04 07:04 | Outpatient (CLI) | payer MEDICARE, SELFPAY ==
[2020-04-04 07:52] LABS: Add Manual Diff / Slide Review NO; Basophils Absolute Auto 0 /uL (0-100); Basophils Percent Auto 0.4 % (0-2); Eosinophils Absolute Auto 100 /uL (0-450); Hematocrit 45.2 % (41-53); Hemoglobin 15.6 g/dL (13.5-17.5); Lymphocytes Absolute Auto 1100 /uL (1100-4500); Lymphocytes Percent Auto 19.1 % (25-40); Mean Corpuscular HGB Conc 34.6 % (30-36); Mean Corpuscular Hemoglobin 30.5 PG (26-34); Mean Corpuscular Volume 88.2 fL (80-100); Monocytes Absolute Auto 500 /uL (0-900); Monocytes Percent Auto 9.2 % (3-14); Neutrophils Absolute Auto 4000 /uL (1500-7000); Neutrophils Percent Auto 70.3 % (50-75); Platelet Count 165 X10^3/uL (150-400); Red Blood Cell Count 5.12 X10^6/uL (4.5-5.9); Red Cell Distribution Width 13.9 % (11.6-14.8); White Blood Cell Count 5.7 X10^3/uL (4.5-11.0)
[2020-04-04 08:07] LABS: Alanine Aminotransferase 27 IU/L (<50); Albumin 4.4 g/dL (3.5-5.0); Albumin Globulin Ratio 1.9 (1.0-2.8); Alkaline Phosphatase 59 U/L (38-126); Aspartate Aminotransferase 30 IU/L (17-59); BUN Creatinine Ratio 18.6 (6-22); Bilirubin Total 0.7 mg/dL (0.2-1.3); Blood Urea Nitrogen 19 mg/dL (9-20); Calcium 9.3 mg/dL (8.4-10.2); Carbon Dioxide 31 mmol/L (22-32); Chloride 99 mmol/L (98-107); Cholesterol 122 mg/dL (140-199); Estimated Glomerular Filt Rate > 60.0 mL/min (>60); Globulin 2.3 g/dL (1.7-4.1); Glucose 137 mg/dL (80-110); HDL Cholesterol 43 mg/dL (40-60); HEMOLYSIS < 15 (0-50); LDL Cholesterol Calculated 55 mg/dL (<100); Potassium 4.5 mmol/L (3.4-5.1); Sodium 135 mmol/L (137-145); Total Protein 6.7 g/dL (6.3-8.2); Triglycerides 119 mg/dL (35-150)
[2020-04-04 08:08] LABS: C-Reactive Protein Quant < 0.5 mg/dL (<1.0)
[2020-04-04 08:09] LABS: Erythrocyte Sedimentation Rate 1 MM/HR (0-15)
[2020-04-04 08:32] LABS: Prostate Specific Antigen Scrn 10.4 ng/mL (0.1-4.0)
== END ==
PROVIDERS: Family Provider Internal Medicine; PCP Internal Medicine; Referring Provider Internal Medicine; Visit Provider Internal Medicine
DX: N40.1 Benign prostatic hyperplasia with lower urinary tract symptoms (principal); E11.9 Type 2 diabetes mellitus without complications; N41.1 Chronic prostatitis
CPT/HCPCS: 36415; 80053; 80061; 85025; 85651; 86140; G0103

== ENCOUNTER → 2020-04-11 16:01 | Outpatient (CLI) | payer MEDICARE, SELFPAY ==
[2020-04-11 16:55] LABS: Add Manual Diff / Slide Review NO; Basophils Absolute Auto 0 /uL (0-100); Basophils Percent Auto 0.4 % (0-2); Eosinophils Absolute Auto 100 /uL (0-450); Hematocrit 44.9 % (41-53); Hemoglobin 15.4 g/dL (13.5-17.5); Lymphocytes Absolute Auto 1100 /uL (1100-4500); Lymphocytes Percent Auto 17.2 % (25-40); Mean Corpuscular HGB Conc 34.3 % (30-36); Mean Corpuscular Hemoglobin 30.5 PG (26-34); Mean Corpuscular Volume 88.9 fL (80-100); Monocytes Absolute Auto 600 /uL (0-900); Monocytes Percent Auto 8.7 % (3-14); Neutrophils Absolute Auto 4700 /uL (1500-7000); Neutrophils Percent Auto 72.7 % (50-75); Platelet Count 177 X10^3/uL (150-400); Red Blood Cell Count 5.05 X10^6/uL (4.5-5.9); Red Cell Distribution Width 13.9 % (11.6-14.8); White Blood Cell Count 6.5 X10^3/uL (4.5-11.0)
[2020-04-11 17:09] LABS: Alanine Aminotransferase 30 IU/L (<50); Albumin 4.5 g/dL (3.5-5.0); Alkaline Phosphatase 77 U/L (38-126); Aspartate Aminotransferase 36 IU/L (17-59); BUN Creatinine Ratio 22.7 (6-22); Bilirubin Total 0.5 mg/dL (0.2-1.3); Blood Urea Nitrogen 22 mg/dL (9-20); Calcium 9.5 mg/dL (8.4-10.2); Carbon Dioxide 29 mmol/L (22-32); Chloride 100 mmol/L (98-107); Estimated Glomerular Filt Rate > 60.0 mL/min (>60); Globulin 2.3 g/dL (1.7-4.1); Glucose 118 mg/dL (80-110); HEMOLYSIS < 15 (0-50); Potassium 4.5 mmol/L (3.4-5.1); Sodium 137 mmol/L (137-145); Total Protein 6.8 g/dL (6.3-8.2); Uric Acid 4.8 mg/dL (3.5-8.5)
[2020-04-11 17:19] LABS: Erythrocyte Sedimentation Rate 2 MM/HR (0-15)
[2020-04-12 10:30] LABS: High Sensitivity CRP - Cardiac 0.3 mg/L (1.0-3.0)
== END ==
PROVIDERS: Family Provider Internal Medicine; PCP Internal Medicine; Referring Provider Ophthalmology; Visit Provider Ophthalmology
DX: I10 Essential (primary) hypertension (principal)
CPT/HCPCS: 36415; 80053; 84550; 85025; 85651; 86140

== ENCOUNTER → 2020-05-15 07:44 | Outpatient (CLI) | payer MEDICARE, SELFPAY ==
[2020-05-15 08:43] LABS: BUN Creatinine Ratio 18.7 (6-22); Blood Urea Nitrogen 20 mg/dL (9-20); Estimated Glomerular Filt Rate > 60.0 mL/min (>60)
== END ==
PROVIDERS: Family Provider Internal Medicine; PCP Internal Medicine; Referring Provider Student in an Organized Health Care Education/Training Program; Visit Provider Student in an Organized Health Care Education/Training Program
DX: C61 Malignant neoplasm of prostate (principal)
CPT/HCPCS: 36415; 82565; 84520

== ENCOUNTER → 2020-05-17 09:34 | Outpatient (CLI) | payer MEDICARE, SELFPAY ==
--- NOTE | 2020-05-17 | DI.NM.S_ITS ---
PROCEDURE: NM BONE SCAN WHOLE BODY RADIOPHARMACEUTICAL: 18.0 mCi Tc-99m MDP IV. INDICATIONS: Malignant neoplasm of prostate TECHNIQUE: Delayed whole-body scintigrams were obtained approximately 3-4 hours after intravenous injection of radiotracer. Anterior and posterior views were acquired from vertex to feet. Additional left and right oblique views of the pelvis were obtained. COMPARISON: [facility], CT, CT ABDOMEN PELVIS W CON, 05/17/2020, 10:59. FINDINGS: There is mild degenerative change at each shoulder, greater on the right than the left, and at the wrist level of each upper extremity, greater on the left than the right. Knee joint and 1st MTP joint area degenerative change also is found but there is no sign of metastatic disease. Isotope deposition within areas of injection at the right forearm and antecubital fossa are incidentally noted. IMPRESSION: No evidence of metastatic disease. Degenerative changes as discussed. Dictated by: Norbert Lemus M.D. on 05/17/2020 at 16:24 Approved by: Norbert Lemus M.D. on 05/17/2020 at 16:27
--- NOTE | 2020-05-17 | DI.CT.S_ITS ---
PROCEDURE: CT ABDOMEN PELVIS W CON INDICATIONS: Malignant neoplasm of prostate TECHNIQUE: After the administration of oral and intravenous contrast, 5 mm thick sections acquired from the diaphragms to the symphysis. Intravenous contrast was administered, and repeat imaging was obtained. 5 mm thick coronal and sagittal reformats were performed. For radiation dose reduction, the following was used: automated exposure control, adjustment of mA and/or kV according to patient size. COMPARISON: None. FINDINGS: Image quality: Excellent. ABDOMEN: Lung bases: Lung bases are clear. Heart size is normal. Solid organs: Liver is normal in size and enhancement. Gallbladder is surgically absent. Biliary system is non-dilated. Pancreas enhances normally. Spleen is normal in size and enhancement. No adrenal nodules. Kidneys are normal in size and enhancement, without hydronephrosis. Peritoneum and bowel: Stomach, small bowel, and colon loops are normal in caliber and wall thickness. No free fluid or air. Right colonic resection in the past. Mild rectal fecal impaction. Mild diverticulosis without evidence of diverticulitis. Nodes and vessels: No retroperitoneal or mesenteric adenopathy. Aorta and inferior vena cava are normal in caliber. Miscellaneous: No ventral hernias. PELVIS: Genitourinary: Bladder wall thickness is normal. Prostate is enlarged. Miscellaneous: No inguinal hernias or adenopathy. Bones: No suspicious bony lesions. No vertebral body compression fractures. IMPRESSION: No evidence of metastatic disease in the abdomen and pelvis. Mild rectal fecal impaction. Dictated by: Marco Antonio Hoyt M.D. on 05/17/2020 at 12:47 Approved by: Marco Antonio Hoyt M.D. on 05/17/2020 at 12:57
== END ==
PROVIDERS: Family Provider Internal Medicine; PCP Internal Medicine; Referring Provider Student in an Organized Health Care Education/Training Program; Visit Provider Student in an Organized Health Care Education/Training Program
DX: C61 Malignant neoplasm of prostate (principal); K56.41 Fecal impaction; K57.90 Diverticulosis of intestine, part unspecified, without perforation or abscess without bleeding; Z90.49 Acquired absence of other specified parts of digestive tract
CPT/HCPCS: 74177; 78306; A9503

== ENCOUNTER 2020-07-20 08:00 | Emergency (ER) | payer MEDICARE, SELFPAY ==
[2020-07-20 08:11] VITALS: BP 220/107; PULSE 64; RESP 16; TEMP 35.6; O2SAT 98; BMI 25.7
[2020-07-20] MEDS: OXYMETAZOLINE NASAL SPRAY 15 ML 2 SPRAYS NASAL (08:18)
--- NOTE | 2020-07-20 08:52 | ED.EPISTAXIS ---
HPI - Epistaxis General Chief complaint: Nasal Problem Stated complaint: bloody nose Time Seen by Provider: 07/20/20 08:01 Source: patient Mode of arrival: Ambulatory Limitations: no limitations History of Present Illness HPI Narrative: 79-year-old male nonsmoker with a cardiac history, on Plavix presents with a spontaneous left-sided nosebleed that started just prior to arrival. He is not dizzy nor weak or lightheaded. He states he awoke with bleeding from his left ear does feel some going down the back of his throat. He was able to control it somewhat with pinching while leaning forward. He denies any chest pain, shortness of breath nor nausea, vomiting or diarrhea. He denies any injury, picking his nose or blowing his nose MD complaint: epistaxis Location: left nostril Onset (ago): minute(s) Duration: constant Context: other anticoagulant use Treatment prior to arrival: nose pinching and head leaned forward Related Data Home Medications Medication Instructions Recorded Confirmed Atorvastatin Calcium (Lipitor) 10 mg PO QDAY #0 03/10/10 COENZYME Q10/VITAMIN E (CO-Q-10 200 mg PO QDAY #0 02/21/13 200mg) Fish Oil 1,000 mg PO TID #0 02/21/13 selenium 100 mcg PO QDAY #0 02/21/13 Allergies Allergy/AdvReac Type Severity Reaction Status Date / Time aspirin [ASPIRIN] Allergy Severe ANEMIA Unverified 11/03/17 11:48 NSAIDS (Non-Steroidal Allergy Severe GI Bleeding Unverified 11/03/17 11:48 Anti-Inflamma [NSAIDS (NON-STEROIDAL ANTI-INFLAMMA] Penicillins Allergy Severe ASTHMA Unverified 11/03/17 11:48 Review of Systems Constitutional Constitutional: Denies chills, Denies fatigue, Denies fever(s), Denies frequent falls, Denies lethargy and Denies weakness Eyes Eyes: Denies change in vision, Denies eye discharge, Denies irritation and Denies loss of vision ENT Ears, Nose, Mouth, and Throat: Denies change in voice, Denies dizziness, Reports epistaxis, Denies neck pain, Denies sore throat and Denies throat swelling Cardiovascular Cardiovascular: Denies chest pain, Denies irregular heart rhythm, Denies lightheadedness, Denies palpitations, Denies dyspnea, Denies dyspnea on exertion and Denies orthopnea Respiratory Respiratory: Denies cough, Denies dyspnea, Denies dyspnea on exertion and Denies wheezing Gastrointestinal Gastrointestinal: Denies abdominal pain, Denies change in bowel habits, Denies diarrhea, Denies nausea and Denies vomiting Musculoskeletal Musculoskeletal: Denies neck pain and Denies numbness Integumentary/Breasts Skin/Breast: Denies pruritus, Denies erythema, Denies rash and Denies wounds Neurologic Neurologic: Denies behavioral changes, Denies confusion, Denies dizziness, Denies frequent falls, Denies loss of vision, Denies numbness and Denies weakness Psychiatric Psychiatric: Denies anxiety, Denies behavioral changes, Denies confusion, Denies depression, Denies homicidal ideation and Denies suicidal ideation Endocrine Endocrine: Denies fatigue, Denies flushing and Denies palpitations Hematologic/Lymphatic Hematologic/Lymphatic: Denies easy bruising Allergic/Immunologic Allergic/Immunologic: Denies urticaria, Denies throat swelling and Denies wheezing Patient History Medical History Dyslipidemia H/O non-insulin dependent diabetes mellitus History of colon cancer HTN (hypertension) Surgical History Aortic valve vegetation H/O nasal septoplasty History of right hemicolectomy Social History Smoking Status: Never smoker Smoking Status: Never smoker alcohol intake frequency: 0-2 drinks per day Substance Use Type: does not use Exam Narrative Exam Narrative: GEN: AOx3 and in mild distress, clamping nose, dried blood on face. EYES: Pupils are equal, round, and reactive to light and accommodation. Extraoccular muscles are intact bilaterally. There is no subconjunctival hemorrhage or exudate. ENT: fresh clots and active bleeding from L nare, mild pharygeal drainage. Site of bleeding unable to be visualized, but suspect posterior CHEST: Lungs are clear to auscultation bilaterally and free of wheezes, rales, or rhonchi. Heart rate is regular rhythm, there are no murmurs, clicks, rubs, or gallops. There is no chest wall tenderness. ABD: Abdomen is soft and nontender. There is no guarding or rebound. Bowel sounds are normal in all 4 quadrants. There is no mass or organomegaly. EXT: Full painless ROM of all extremities with no loss of sensation or strength. SKIN: Warm, pink, and dry. No erythema or rash Initial Vital Signs Initial Vital Signs: Vital Signs Temperature 96.0 F L 07/20/20 08:11 Pulse Rate 64 07/20/20 08:11 Respiratory Rate 16 07/20/20 08:11 Blood Pressure 220/107 H 07/20/20 08:11 Pulse Oximetry 98 07/20/20 08:11 Procedures Epistaxis Control Time Out Performed: Yes Nostril: left Nose Prepped With: oxymetazoline Direct Inspection: yes and unable to visualize Clots Removed by: blowing nose, suction and manually Device Inserted: hemostatic balloon Device Size: 4 Patient Tolerated Procedure: well Course Orders Ordered: Discontinued Medications Oxymetazoline HCl (Oxymetazoline Nasal [place] 15 Ml) 2 sprays NASAL NOW ONE Stop: 07/20/20 08:10 Last Admin: 07/20/20 08:18 Dose: 2 sprays Documented by: BALA Tranexamic Acid (Tranexamic Acid 1,000 Mg Vial) 1,000 mg MM NOW ONE Stop: 07/20/20 08:10 Vital Signs Vital signs: Vital Signs - 8 hr 07/20/20 08:11 07/20/20 08:57 Temperature 96.0 F L Pulse Rate 64 78 Respiratory Rate 16 12 Blood Pressure 220/107 H 220/98 H Pulse Oximetry 98 98 MDM - Epistaxis MDM Narrative Medical decision making narrative: Patient denied other symptoms such as dizziness, weakness, lightheadedness or shortness of breath. He was on the hypertensive side here but had not yet taken his medications this morning. He did not have headache, blurred vision chest pain or abdominal pain. His bleeding was controlled. He was observed for 30 minutes and ambulated through the department. He had no ongoing bleeding and no symptoms. He and were both given return precautions and had questions answered to their apparent satisfaction. Discharge Plan Departure Patient Disposition: Home Clinical Impression: Epistaxis Instructions: DI for Nosebleed Activity Restrictions/Additional Instructions: *You have been diagnosed with [ posterior nose bleed ] *What to do: *Take medications as directed *Follow up with [facility], call Wednesday for an appointment. Let them know you were seen in the Emergency Department and that we ask that you be seen in follow up. Leave the nose pack in place. *Return to ER if you should have any new, worsening or concerning symptoms, such as [ recurrence of bleeding, fever > 101F, or other bothersome symptoms] Prescriptions: No Action Atorvastatin Calcium (Lipitor) 10 mg PO QDAY Qty: 0 RF: 0 COENZYME Q10/VITAMIN E (CO-Q-10 200mg) 200 mg PO QDAY Qty: 0 RF: 0 Fish Oil 1,000 mg PO TID Qty: 0 RF: 0 selenium 200 MCG tablet 100 mcg PO QDAY Qty: 0 RF: 0 Referrals: Costa Tellez MD [Primary Care Provider] -
[2020-07-20 08:57] VITALS: BP 220/98; PULSE 78; RESP 12; O2SAT 98
--- NOTE | 2020-07-20 08:58 | PC.NURSE ---
patient ambulatory with no difficulty. Patient denies dizziness, SOB. No new bleeding from nose.
== END 2020-07-20 09:08 | disposition home or self-care (01) ==
PROVIDERS: Emergency Provider Emergency Medicine; Family Provider Internal Medicine; PCP Internal Medicine
DX: R04.0 Epistaxis (principal); I10 Essential (primary) hypertension; E78.5 Hyperlipidemia, unspecified; E11.9 Type 2 diabetes mellitus without complications; Z85.038 Personal history of other malignant neoplasm of large intestine
CPT/HCPCS: 99281; A9270

== ENCOUNTER 2020-07-20 10:14 | Emergency (ER) | payer MEDICARE, SELFPAY ==
[2020-07-20] VITALS (19 sets, daily range): BP systolic 148–204; BP diastolic 75–103; PULSE 60–72; RESP 14–18; TEMP 35.6; O2SAT 95–100; BMI 25.7
--- NOTE | 2020-07-20 10:37 | ED.EPISTAXIS ---
HPI - Epistaxis General Chief complaint: Nasal Problem Stated complaint: nose bleed Time Seen by Provider: 07/20/20 10:15 Source: patient Mode of arrival: Ambulatory Limitations: no limitations History of Present Illness HPI Narrative: 79-year-old male returns for 2nd evaluation of nose bleed. He had been seen and evaluated earlier today, please see the note for details. He denies any dizziness, weakness or lightheadedness. He denies any fever chills. He has had no nausea or. He states his rhino rocket is still in place but after being at home for about an hour he states that it started leaking into the back of his throat, he had a violent coughing episode and coughed up clot. Related Data Home Medications Medication Instructions Recorded Confirmed Atorvastatin Calcium (Lipitor) 10 mg PO QDAY #0 03/10/10 COENZYME Q10/VITAMIN E (CO-Q-10 200 mg PO QDAY #0 02/21/13 200mg) Fish Oil 1,000 mg PO TID #0 02/21/13 selenium 100 mcg PO QDAY #0 02/21/13 Allergies Allergy/AdvReac Type Severity Reaction Status Date / Time aspirin [ASPIRIN] Allergy Severe ANEMIA Verified 07/20/20 10:19 NSAIDS (Non-Steroidal Allergy Severe GI Bleeding Verified 07/20/20 10:19 Anti-Inflamma [NSAIDS (NON-STEROIDAL ANTI-INFLAMMA] Penicillins Allergy Severe ASTHMA Verified 07/20/20 10:19 Review of Systems Constitutional Constitutional: Denies chills, Denies fatigue, Denies fever(s), Denies frequent falls, Denies lethargy and Denies weakness Eyes Eyes: Denies change in vision, Denies eye discharge, Denies irritation and Denies loss of vision ENT Ears, Nose, Mouth, and Throat: Denies change in voice, Denies dizziness, Reports epistaxis, Denies neck pain, Denies sore throat and Denies throat swelling Cardiovascular Cardiovascular: Denies chest pain, Denies irregular heart rhythm, Denies lightheadedness, Denies palpitations, Denies dyspnea, Denies dyspnea on exertion and Denies orthopnea Respiratory Respiratory: Denies cough, Denies dyspnea, Denies dyspnea on exertion and Denies wheezing Gastrointestinal Gastrointestinal: Denies abdominal pain, Denies change in bowel habits, Denies diarrhea, Denies nausea and Denies vomiting Musculoskeletal Musculoskeletal: Denies neck pain and Denies numbness Integumentary/Breasts Skin/Breast: Denies pruritus, Denies erythema, Denies rash and Denies wounds Neurologic Neurologic: Denies behavioral changes, Denies confusion, Denies dizziness, Denies frequent falls, Denies loss of vision, Denies numbness and Denies weakness Psychiatric Psychiatric: Denies anxiety, Denies behavioral changes, Denies confusion, Denies depression, Denies homicidal ideation and Denies suicidal ideation Endocrine Endocrine: Denies fatigue, Denies flushing and Denies palpitations Hematologic/Lymphatic Hematologic/Lymphatic: Denies easy bruising Allergic/Immunologic Allergic/Immunologic: Denies urticaria, Denies throat swelling and Denies wheezing Patient History Medical History Dyslipidemia H/O non-insulin dependent diabetes mellitus History of colon cancer HTN (hypertension) Surgical History Aortic valve vegetation H/O nasal septoplasty History of right hemicolectomy Social History Smoking Status: Never smoker Smoking Status: Never smoker alcohol intake frequency: 0-2 drinks per day Substance Use Type: does not use Exam Narrative Exam Narrative: GEN: AOx3 and in mild distress EYES: Pupils are equal, round, and reactive to light and accommodation. Extraoccular muscles are intact bilaterally. There is no subconjunctival hemorrhage or exudate. ENT: Rhinorocket in place. No external bleeding. Intraoral exam notes some posterior bleeding present in the posterior pharynx. Bright red. CHEST: Lungs are clear to auscultation bilaterally and free of wheezes, rales, or rhonchi. Heart rate is regular rhythm, there are no murmurs, clicks, rubs, or gallops. There is no chest wall tenderness. ABD: Abdomen is soft and nontender. There is no guarding or rebound. Bowel sounds are normal in all 4 quadrants. There is no mass or organomegaly. EXT: Full painless ROM of all extremities with no loss of sensation or strength. SKIN: Warm, pink, and dry. No erythema or rash Initial Vital Signs Initial Vital Signs: Vital Signs Temperature 96.0 F L 07/20/20 10:15 Pulse Rate 67 07/20/20 10:15 Respiratory Rate 14 07/20/20 10:15 Blood Pressure 192/100 H 07/20/20 10:15 Pulse Oximetry 100 07/20/20 10:15 Course Course Course Narrative: Initial rhino rocket was a 4.5 cm, this was removed and I attempted to place a 7 cm. This did not fit and then successfully placed a 5.5 cm rocket. He tolerated it well and bleeding was controlled. He was observed for about 2 hours, ambulated through the department and then developed what he felt like was some bleeding in his posterior pharynx. Upon re-examination there was some bleeding noted. I contacted ENT at this point time who recommended more focused blood pressure control, repeat labs and a 2 hour observation period. The patient did quite well over that time frame and there was no ongoing bleeding. His blood pressure did creep back up but he had no symptoms such as headache, blurred vision, trouble with speech, chest pain, shortness of breath. His bleeding was well controlled. Orders Ordered: ED Orders 07/20/20 12:40 Basic Metabolic Panel Stat Complete Blood Count AUTO DIFF Stat Prothrombin Time INR Stat Discontinued Medications Hydralazine HCl (Hydralazine 20 Mg/Ml Vial) 5 mg IV NOW ONE Stop: 07/20/20 13:08 Last Admin: 07/20/20 13:10 Dose: 5 mg Documented by: AFBIAN Vital Signs Vital signs: Vital Signs - 8 hr 07/20/20 10:15 07/20/20 11:15 07/20/20 12:31 Temperature 96.0 F L Pulse Rate 67 Respiratory Rate 14 17 Blood Pressure 192/100 H Pulse Oximetry 100 95 07/20/20 12:32 07/20/20 12:35 07/20/20 13:00 Temperature Pulse Rate 61 60 60 Respiratory Rate Blood Pressure 204/95 H 198/96 H 185/88 H Pulse Oximetry 98 99 98 07/20/20 13:10 07/20/20 13:15 07/20/20 13:17 Temperature Pulse Rate 64 63 62 Respiratory Rate Blood Pressure 185/88 H 160/86 H 154/83 H Pulse Oximetry 98 98 07/20/20 13:30 07/20/20 14:00 07/20/20 14:31 Temperature Pulse Rate 65 69 Respiratory Rate Blood Pressure 158/80 H 148/75 H Pulse Oximetry 97 98 99 07/20/20 14:34 07/20/20 15:05 07/20/20 15:08 Temperature Pulse Rate 64 72 65 Respiratory Rate Blood Pressure 169/88 H 180/87 H Pulse Oximetry 98 97 97 07/20/20 15:30 07/20/20 16:00 07/20/20 16:30 Temperature Pulse Rate 65 65 67 Respiratory Rate Blood Pressure 159/83 H 181/84 H 196/103 H Pulse Oximetry 96 96 96 07/20/20 17:27 Temperature Pulse Rate 66 Respiratory Rate 18 Blood Pressure 192/93 H Pulse Oximetry 98 MDM - Epistaxis Lab Data Result diagrams: 07/20/20 12:40 07/20/20 12:40 Labs: Lab Results 07/20/20 07/20/20 07/20/20 Range/Units 12:40 12:40 12:40 WBC 7.3 (4.5-11.0) X10^3/uL RBC 5.48 (4.5-5.9) X10^6/uL Hgb 17.0 (13.5-17.5) g/dL Hct 49.1 (41-53) % MCV 89.6 (80-100) fL MCH 31.0 (26-34) PG MCHC 34.6 (30-36) % RDW 13.8 (11.6-14.8) % Plt Count 167 (150-400) X10^3/uL Neut % (Auto) 76.5 H (50-75) % Lymph % (Auto) 15.2 L (25-40) % [place] % (Auto) 6.8 (3-14) % Eos % (Auto) 1.2 L (2-4) % Baso % (Auto) 0.3 (0-2) % Neut # (Auto) 5600 (4831-5840) /uL Lymph # (Auto) 1100 (2627-0059) /uL [place] # (Auto) 500 (0-900) /uL Eos # (Auto) 100 (0-450) /uL Baso # (Auto) 0 (0-100) /uL PT 12.1 (10.1-12.7) SECONDS INR 1.0 (0.9-1.3) Sodium 137 (137-145) mmol/L Potassium 4.1 (3.4-5.1) mmol/L Chloride 100 (98-107) mmol/L Carbon Dioxide 30 (22-32) mmol/L BUN 26 H (9-20) mg/dL Creatinine 0.85 (0.66-1.25) mg/dL Estimated GFR > 60.0 (>60) mL/min BUN/Creatinine Ratio 30.6 H (6-22) Glucose 210 H (80-110) mg/dL Calcium 9.7 (8.4-10.2) mg/dL Discharge Plan Departure Patient Disposition: Home Clinical Impression: Epistaxis Instructions: DI for Nosebleed Activity Restrictions/Additional Instructions: *You have been diagnosed with [epistaxis] *What to do: * Dr. Kevin said to go ahead and stop your Plavix *Follow up with ENT as previously discussed *Return to ER if you should have any new, worsening or concerning symptoms Prescriptions: No Action Atorvastatin Calcium (Lipitor) 10 mg PO QDAY Qty: 0 RF: 0 COENZYME Q10/VITAMIN E (CO-Q-10 200mg) 200 mg PO QDAY Qty: 0 RF: 0 Fish Oil 1,000 mg PO TID Qty: 0 RF: 0 selenium 200 MCG tablet 100 mcg PO QDAY Qty: 0 RF: 0 Referrals: Octaviano Madison MD [Physician] - Costa Tellez MD [Primary Care Provider] -
--- NOTE | 2020-07-20 11:16 | PC.NURSE ---
pt ambulated around department. denied any dizziness. pt feels well enough to go home. dr alvarado aware
[2020-07-20 12:49] LABS: Add Manual Diff / Slide Review NO; Basophils Absolute Auto 0 /uL (0-100); Basophils Percent Auto 0.3 % (0-2); Eosinophils Absolute Auto 100 /uL (0-450); Eosinophils Percent Auto 1.2 % (2-4); Hematocrit 49.1 % (41-53); Lymphocytes Absolute Auto 1100 /uL (1100-4500); Lymphocytes Percent Auto 15.2 % (25-40); Mean Corpuscular HGB Conc 34.6 % (30-36); Mean Corpuscular Volume 89.6 fL (80-100); Monocytes Absolute Auto 500 /uL (0-900); Monocytes Percent Auto 6.8 % (3-14); Neutrophils Absolute Auto 5600 /uL (1500-7000); Neutrophils Percent Auto 76.5 % (50-75); Platelet Count 167 X10^3/uL (150-400); Red Blood Cell Count 5.48 X10^6/uL (4.5-5.9); Red Cell Distribution Width 13.8 % (11.6-14.8); White Blood Cell Count 7.3 X10^3/uL (4.5-11.0)
[2020-07-20 12:51] LABS: Prothrombin Time 12.1 SECONDS (10.1-12.7)
[2020-07-20 12:55] LABS: BUN Creatinine Ratio 30.6 (6-22); Blood Urea Nitrogen 26 mg/dL (9-20); Calcium 9.7 mg/dL (8.4-10.2); Carbon Dioxide 30 mmol/L (22-32); Chloride 100 mmol/L (98-107); Estimated Glomerular Filt Rate > 60.0 mL/min (>60); Glucose 210 mg/dL (80-110); HEMOLYSIS 15 (0-50); Potassium 4.1 mmol/L (3.4-5.1); Sodium 137 mmol/L (137-145)
[2020-07-20] MEDS: HYDRALAZINE 20 MG/ML VIAL 5 MG IV (13:10)
== END 2020-07-20 17:29 | disposition home or self-care (01) ==
PROVIDERS: Emergency Provider Emergency Medicine; Family Provider Internal Medicine; PCP Internal Medicine
DX: R04.0 Epistaxis (principal); I10 Essential (primary) hypertension; E78.5 Hyperlipidemia, unspecified; E11.9 Type 2 diabetes mellitus without complications; Z85.038 Personal history of other malignant neoplasm of large intestine
CPT/HCPCS: 30901; 36415; 80048; 85025; 85610; 96374; 99281; 99283; 99284; A9270; J0360

== ENCOUNTER → 2020-09-10 07:18 | Outpatient (CLI) | payer MEDICARE, SELFPAY ==
[2020-09-10 08:19] LABS: Hemoglobin A1C% w Est Avg Glu 8.1 % (4.0-6.0)
[2020-09-10 08:45] LABS: Alanine Aminotransferase 41 IU/L (<50); Albumin 4.3 g/dL (3.5-5.0); Albumin Globulin Ratio 1.8 (1.0-2.8); Alkaline Phosphatase 84 U/L (38-126); Aspartate Aminotransferase 27 IU/L (17-59); BUN Creatinine Ratio 23.5 (6-22); Bilirubin Total 0.4 mg/dL (0.2-1.3); Blood Urea Nitrogen 20 mg/dL (9-20); Calcium 9.3 mg/dL (8.4-10.2); Carbon Dioxide 32 mmol/L (22-32); Chloride 97 mmol/L (98-107); Estimated Glomerular Filt Rate > 60.0 mL/min (>60); Globulin 2.4 g/dL (1.7-4.1); Glucose 231 mg/dL (80-110); HEMOLYSIS < 15 (0-50); Potassium 4.3 mmol/L (3.4-5.1); Sodium 133 mmol/L (137-145); Total Protein 6.7 g/dL (6.3-8.2)
[2020-09-10 09:28] LABS: Hep C Virus Ab w/Reflex Quant NEGATIVE s/c (NEGATIVE)
[2020-09-10 09:30] LABS: Creatinine Urine Random 63.1 mg/dL
[2020-09-10 09:36] LABS: Microalbumin Urine Random < 0.6 mg/dL (0-1.6)
== END ==
PROVIDERS: Family Provider Internal Medicine; PCP Internal Medicine; Referring Provider Internal Medicine; Visit Provider Internal Medicine
DX: E11.9 Type 2 diabetes mellitus without complications (principal); I10 Essential (primary) hypertension; E78.00 Pure hypercholesterolemia, unspecified
CPT/HCPCS: 36415; 80053; 82043; 82570; 83036; 86803

== ENCOUNTER → 2020-10-28 10:07 | Outpatient (CLI) | payer MEDICARE, SELFPAY ==
[2020-10-29 22:51] LABS: PSA, Total < 0.1 ng/mL (0.0-4.0)
[2020-10-31 07:56] LABS: Percent Free Testosterone 2.16 % (1.50-4.20); Testosterone Free 0.09 ng/dL (5.00-21.00)
== END ==
PROVIDERS: Family Provider Internal Medicine; PCP Internal Medicine; Referring Provider Student in an Organized Health Care Education/Training Program; Visit Provider Student in an Organized Health Care Education/Training Program
DX: R97.20 Elevated prostate specific antigen [PSA] (principal); C61 Malignant neoplasm of prostate
CPT/HCPCS: 36415; 84153; 84154; 84402; 84403

== ENCOUNTER → 2021-02-06 07:14 | Outpatient (CLI) | payer MEDICARE, SELFPAY ==
[2021-02-06 09:02] LABS: Hemoglobin A1C% w Est Avg Glu 7.7 % (4.0-6.0)
[2021-02-06 09:21] LABS: BUN Creatinine Ratio 20.7 (6-22); Blood Urea Nitrogen 19 mg/dL (9-20); Calcium 9.5 mg/dL (8.4-10.2); Carbon Dioxide 30 mmol/L (22-32); Chloride 99 mmol/L (98-107); Estimated Glomerular Filt Rate > 60.0 mL/min (>60); Glucose 180 mg/dL (80-110); HEMOLYSIS < 15 (0-50); Sodium 137 mmol/L (137-145)
== END ==
PROVIDERS: Family Provider Internal Medicine; PCP Internal Medicine; Referring Provider Internal Medicine; Visit Provider Internal Medicine
DX: E11.65 Type 2 diabetes mellitus with hyperglycemia (principal)
CPT/HCPCS: 36415; 80048; 83036

== ENCOUNTER → 2021-02-13 07:08 | Outpatient (CLI) | payer MEDICARE, SELFPAY ==
[2021-02-13 09:09] LABS: Prostate Specific Antigen < 0.064 ng/mL (0.10-4.00)
== END ==
PROVIDERS: Family Provider Internal Medicine; PCP Internal Medicine; Referring Provider Student in an Organized Health Care Education/Training Program; Visit Provider Student in an Organized Health Care Education/Training Program
DX: C61 Malignant neoplasm of prostate (principal)
CPT/HCPCS: 36415; 84153

== ENCOUNTER → 2021-08-06 07:33 | Outpatient (CLI) | payer MEDICARE, SELFPAY ==
[2021-08-06 08:31] LABS: Add Manual Diff / Slide Review NO; Basophils Absolute Auto 0 /uL (0-100); Basophils Percent Auto 0.4 % (0-2); Eosinophils Absolute Auto 100 /uL (0-450); Eosinophils Percent Auto 1.2 % (2-4); Hematocrit 40.4 % (41-53); Hemoglobin 13.9 g/dL (13.5-17.5); Lymphocytes Absolute Auto 800 /uL (1100-4500); Lymphocytes Percent Auto 15.4 % (25-40); Mean Corpuscular HGB Conc 34.4 % (30-36); Mean Corpuscular Hemoglobin 30.6 PG (26-34); Mean Corpuscular Volume 89.1 fL (80-100); Monocytes Absolute Auto 500 /uL (0-900); Monocytes Percent Auto 9.4 % (3-14); Neutrophils Absolute Auto 3800 /uL (1500-7000); Neutrophils Percent Auto 73.6 % (50-75); Platelet Count 180 X10^3/uL (150-400); Red Blood Cell Count 4.54 X10^6/uL (4.5-5.9); Red Cell Distribution Width 13.9 % (11.6-14.8); White Blood Cell Count 5.1 X10^3/uL (4.5-11.0)
[2021-08-06 08:48] LABS: Hemoglobin A1C% w Est Avg Glu 7.5 % (4.0-6.0)
[2021-08-06 09:01] LABS: Alanine Aminotransferase 33 IU/L (<50); Albumin 4.5 g/dL (3.5-5.0); Alkaline Phosphatase 73 U/L (38-126); Aspartate Aminotransferase 29 IU/L (17-59); Bilirubin Total 0.5 mg/dL (0.2-1.3); Blood Urea Nitrogen 23 mg/dL (9-20); Calcium 9.8 mg/dL (8.4-10.2); Carbon Dioxide 32 mmol/L (22-32); Chloride 99 mmol/L (98-107); Cholesterol 150 mg/dL (140-199); Estimated Glomerular Filt Rate > 60.0 mL/min (>60); Globulin 2.3 g/dL (1.7-4.1); Glucose 170 mg/dL (80-110); HDL Cholesterol 45 mg/dL (40-60); HEMOLYSIS < 15 (0-50); LDL Cholesterol Calculated 72 mg/dL (<100); Potassium 4.3 mmol/L (3.4-5.1); Sodium 138 mmol/L (137-145); Total Protein 6.8 g/dL (6.3-8.2); Triglycerides 167 mg/dL (35-150)
[2021-08-06 12:09] LABS: Microalbumin Urine Random 0.6 mg/dL (0-1.6)
[2021-08-06 12:10] LABS: Creatinine Urine Random 74.3 mg/dL
== END ==
PROVIDERS: Family Provider Internal Medicine; PCP Internal Medicine; Referring Provider Internal Medicine; Visit Provider Internal Medicine
DX: E11.65 Type 2 diabetes mellitus with hyperglycemia (principal); E78.00 Pure hypercholesterolemia, unspecified
CPT/HCPCS: 36415; 80053; 80061; 82043; 82570; 83036; 85025

== ENCOUNTER 2021-08-16 16:07 | Emergency (ER) | payer MEDICARE, SELFPAY ==
[2021-08-16] VITALS (10 sets, daily range): BP systolic 183–196; BP diastolic 68–88; PULSE 62–74; RESP 18; TEMP 37; O2SAT 95–99; BMI 26.4
--- NOTE | 2021-08-16 16:43 | ED.LOWEXIN ---
HPI - Extremity Injury (Lower) General Chief Complaint: Extremity Injury, Lower Stated Complaint: pulled muscle in side Time Seen by Provider: 08/16/21 16:09 Source: patient and EMS Mode of arrival: EMS History of Present Illness HPI Narrative: Patient is a 81-year-old male here for evaluation of right-sided flank/side pain. He states that several days ago he was shoveling snow. There was a specific incident where he had pain on his right side. Thought that it was a pulled muscle. He states that over the next couple days his symptoms improved but now has returned again. He feels like he is does re-injured the area. He had a difficult time moving around earlier today so he contacted EMS. He does have a history of prostate cancer. He has been taking Tylenol at home for his discomfort. Related Data Home Medications Medication Instructions Recorded Confirmed Atorvastatin Calcium (Lipitor) 10 mg PO QDAY #0 03/10/10 COENZYME Q10/VITAMIN E (CO-Q-10 200 mg PO QDAY #0 02/21/13 200mg) Fish Oil 1,000 mg PO TID #0 02/21/13 selenium 200 mcg tablet 100 mcg PO QDAY #0 02/21/13 Previous Rx's Medication Instructions Recorded hydrocodone 5 mg-acetaminophen 325 1 tab PO Q6H PRN #7 tab 08/16/21 mg tablet Allergies Allergy/AdvReac Type Severity Reaction Status Date / Time aspirin [ASPIRIN] Allergy Severe ANEMIA Verified 07/20/20 10:19 NSAIDS (Non-Steroidal Allergy Severe GI Bleeding Verified 07/20/20 10:19 Anti-Inflamma [NSAIDS (NON-STEROIDAL ANTI-INFLAMMA] Penicillins Allergy Severe ASTHMA Verified 07/20/20 10:19 Review of Systems Cardiovascular Cardiovascular: Reports as per HPI and Reports system reviewed and no additional complaints, except as documented Gastrointestinal Gastrointestinal: Reports as per HPI and Reports system reviewed and no additional complaints, except as documented Musculoskeletal Musculoskeletal: Reports system reviewed and no additional complaints, except as documented and Reports as per HPI Integumentary/Breasts Skin/Breast: Reports system reviewed and no additional complaints, except as documented and Reports as per HPI Neurologic Neurologic: Reports system reviewed and no additional complaints, except as documented Hematologic/Lymphatic On Anticoagulants: No Patient History Medical History Dyslipidemia H/O non-insulin dependent diabetes mellitus History of colon cancer HTN (hypertension) Surgical History Aortic valve vegetation H/O nasal septoplasty History of right hemicolectomy Social History Smoking Status: Never smoker Smoking Status: Never smoker alcohol intake frequency: other Substance Use Type: does not use Exam Initial Vital Signs Initial Vital Signs: Vital Signs Pulse Rate 70 08/16/21 16:12 Pulse Oximetry 98 08/16/21 16:12 HENMT Head: normal to inspection and normocephalic Resp Effort & Inspection: normal respiratory effort Auscultation: clear to auscultation bilaterally Cardio Rate: regular rate Rhythm: regular rhythm GI Palpation: soft, No firm and tender Other: Patient's abdomen is nontender but does have some discomfort over his lower ribs on the right flank. Skin General: no rashes or lesions noted Neuro General: patient alert and patient awake Extrem General: normal to inspection and capillary refill normal Psych Appearance: grossly normal Course Orders Ordered: Discontinued Medications Hydrocodone Bitart/Acetaminophen (Hydrocodone/Acet 5/325 Tablet) 1 tab PO NOW ONE Stop: 08/16/21 16:44 Last Admin: 08/16/21 16:49 Dose: 1 tab Documented by: NLOOSE Hydrocodone Bitart/Acetaminophen (Hydrocodone/Acet 5/325 Prepack) 1 bottle MISC SEEINSTR ONE Stop: 08/16/21 18:18 Vital Signs Vital signs: Vital Signs - 8 hr 08/16/21 16:12 08/16/21 16:13 08/16/21 16:18 Temperature 98.6 F Pulse Rate 70 70 70 Respiratory Rate 18 Blood Pressure 183/88 H 186/88 H Pulse Oximetry 98 99 96 08/16/21 16:30 08/16/21 17:00 08/16/21 17:30 Temperature Pulse Rate 72 74 69 Respiratory Rate Blood Pressure Pulse Oximetry 98 95 96 08/16/21 17:44 08/16/21 17:45 Temperature Pulse Rate 67 Respiratory Rate Blood Pressure 196/88 H 183/68 H Pulse Oximetry 96 MDM - Extremity Injury (Lower) MDM Narrative Medical decision making narrative: Patient is nontoxic. His skin has no rash the make me concern for zoster. No fevers. No urinary symptoms. I can reproduce the discomfort by touching the area. It does seem to be deeper than his ribs. I discussed the potential for metastasis given his prostate cancer. He does feel much better after pain medication. Given his presentation and the onset of the symptoms with movement wall I have a higher suspicion that this is musculoskeletal in origin. Will hold on any CT scan for now. Will send home with pain medication. He is not drowsy from the pain medication. Moved around the room. I actually bent over. He was given strict return precautions and was told to return if he develops any new symptoms. He expressed understanding and agreement. Discharge Plan Departure Patient Disposition: Home Clinical Impression: Right sided abdominal pain Instructions: DI for Abdominal Pain-Adult Activity Restrictions/Additional Instructions: I do feel that your symptoms are most likely muscular in origin. I am glad you feel better with the medications that we gave you here in the ER. Your sent home with some of this medication [facility] It can make you drowsy so be careful when your taking it. Only take it as needed. Contact your primary doctor for a follow-up. Return to the emergency department for any new or worsening symptoms. Prescriptions: New hydrocodone-acetaminophen 5-325 mg tablet 1 tab PO Q6H PRN (Reason: pain) Qty: 7 0RF No Action Atorvastatin Calcium (Lipitor) 10 mg PO QDAY Qty: 0 0RF COENZYME Q10/VITAMIN E (CO-Q-10 200mg) 200 mg PO QDAY Qty: 0 0RF Fish Oil 1,000 mg PO TID Qty: 0 0RF selenium 200 MCG tablet 100 mcg PO QDAY Qty: 0 0RF Referrals: Costa Tellez MD [Primary Care Provider] -
[2021-08-16] MEDS: HYDROCODONE/ACET 5/325 TABLET 1 TAB PO (16:49)
[2021-08-16] MEDS: HYDROCODONE/ACET 5/325 PREPACK 1 BOTTLE MISC (18:37)
== END 2021-08-16 18:44 | disposition home or self-care (01) ==
PROVIDERS: Emergency Provider Emergency Medicine; Family Provider Internal Medicine; PCP Internal Medicine
DX: R10.9 Unspecified abdominal pain (principal)
CPT/HCPCS: 99283

== ENCOUNTER → 2021-10-07 07:30 | Outpatient (CLI) | payer MEDICARE, SELFPAY ==
[2021-10-07 10:52] LABS: Prostate Specific Antigen < 0.064 ng/mL (0.10-4.00); Testosterone 5.83 ng/dL (71.8-623)
== END ==
PROVIDERS: Family Provider Internal Medicine; PCP Internal Medicine; Referring Provider Urology; Visit Provider Urology
DX: C61 Malignant neoplasm of prostate (principal)
CPT/HCPCS: 36415; 84153; 84403

== ENCOUNTER → 2022-01-05 15:53 | Outpatient (CLI) | payer MEDICARE, SELFPAY ==
--- NOTE | 2022-01-05 15:56 | DI.ECHO.S_ITS ---
[facility] +---------+ : : [address] : : : : [id number] : : : : Phone: [phone]+ Echocardiogram Report + + :Name: NAVDEEP SALMERON Study Date: 01/05/2022 Height: 71 in : :[facility] ReadingLocation: Weight: 190 lb : : Gender: Male BSA: 2.1 m2 : :: 1940 Age: 81 yrs BP: 183/101 mmHg: :Reason For Study: Congestive Heart Failure : :Ordering Physician: OBDULIO, : :MATT Performed By: Dixon Glover : :Referring: MATT MAK : + + Interpretation Summary The left ventricular cavity is small. LVEF 55 to 60%. Moderate to severe proximal septal thickening. LV outflow tract velocity about 3 m/s. Dynamic LV outflow tract obstruction. The echo findings are consistent with dynamic left ventricular outflow obstruction with a peak PG of 35mmHg. Previous LV outflow tract velocity about 3.9 m/s. MV E/A: 0.56 Med Peak E' Jaquan: 3.5 cm/sec E/E' med: 26.9 The right ventricle is normal in size and function. There is a pacemaker lead in the right ventricle. There is a calcific nodule in the posterior MV annulus seen on the prior exams as well. There is some restriction of posterior mitral leaflet. The mean gradient across mitral valve about 4.7 mmHg. Previously 4.4 mmHg. Overall mild mitral stenosis. No significant mitral stenosis. There is trace mitral regurgitation. There is discrete nodular thickening of the non- coronary cusp. No significant aortic stenosis or regurgitation. Mild atherosclerotic plaque(s) in the aortic arch. Procedure: A two-dimensional transthoracic echocardiogram with color flow and Doppler was performed. The study quality was technically adequate. Comparison is made with the echocardiogram of 12/13/2018. The patient has a paced rhythm. Left Ventricle: There is moderate concentric left ventricular hypertrophy. Moderate to severe proximal septal thickening. LV outflow tract velocity about 3 m/s. Dynamic LV outflow tract obstruction. The echo findings are consistent with dynamic left ventricular outflow obstruction with a peak PG of 35mmHg. The left ventricular cavity is small. There is no thrombus. Left ventricular systolic function is normal. The ejection fraction is estimated to be 55-60%. Septal motion is consistent with conduction abnormality. MV E/A: 0.56 Med Peak E' Jaquan: 3.5 cm/sec E/E' med: 26.9. Right Ventricle: The right ventricle is normal in size and function. There is a pacemaker lead in the right ventricle. Atria: Both atria are normal in size. The left atrium has mildly decreased in size since the prior echo exam. Mitral Valve: There is a calcific nodule in the posterior MV annulus seen on the prior exams as well. There is some restriction of posterior mitral leaflet. The mean gradient across mitral valve about 4.7 mmHg. Previously 4.4 mmHg. Overall mild mitral stenosis. No significant mitral stenosis. There is systolic anterior motion of the chordal apparatus. The mitral valve mean gradient is 4.7 mmHg. There is trace mitral regurgitation. Aortic Valve: The aortic valve is mildly calcified. There is discrete nodular thickening of the non- coronary cusp. There is no aortic valve stenosis. No aortic regurgitation is present. Tricuspid Valve: The tricuspid valve is normal in structure and function. There is trace tricuspid regurgitation. Right ventricular systolic pressure is estimated to be 33 mmHg plus the clinically estimated CVP which cannot be estimated on this exam. Pulmonic Valve: The pulmonic valve is not well seen, but is grossly normal. There is no pulmonic valvular regurgitation. Great Vessels: The aortic root is normal size. The dimensions of the ascending aorta are normal. Mild atherosclerotic plaque(s) in the aortic arch. The inferior vena cava was not visualized. Pericardium/ Pleura There is no pericardial effusion. There is an anterior echo-free space consistent with a fat pad. There is no pleural effusion. MMode/2D Measurements & Calculations LVIDd: 3.9 cm LVOT diam: 2.0 cm LVIDs: 2.7 cm Ao root diam: 3.0 cm FS: 30.8 % asc Aorta Diam: 2.8 cm IVSd: 1.7 cm LVPWd: 1.4 cm LV call. diameter/BSA (cm/m^2): 1.9 LV sys. diameter/BSA (cm/m^2): 1.3 LA dimension: 4.2 cm RA long axis: 6.3 cm LA A2 area: 19.0 cm2 LA A4 area: 21.3 cm2 LA length (vol): 5.7 cm LA vol: 60.7 ml LA vol index: 29.4 ml/m2 TAPSE_phl: 1.8 cm Doppler Measurements & Calculations MV E max jaquan: 93.5 cm/sec TR max jaquan: 285.0 cm/sec MV A max jaquan: 168.0 cm/sec TR max P.5 mmHg MV E/A: 0.56 Med Peak E' Jaquan: 3.5 cm/sec E/E' med: 26.9 Lat Peak E' Jaquan: 7.8 cm/sec E/E' lat: 11.9 E/e' average: 19.4 MV dec time: 0.58 sec MV V2 mean: 101.9 cm/sec MV P1/2t-pr_phl: 227.7 msec MV mean P.7 mmHg MV V2 VTI: 49.0 cm Reading Physician:11:14 AM
== END ==
PROVIDERS: Family Provider Internal Medicine; PCP Internal Medicine; Referring Provider Internal Medicine Cardiovascular Disease; Visit Provider Internal Medicine Cardiovascular Disease
DX: I70.0 Atherosclerosis of aorta; I50.9 Heart failure, unspecified; I05.0 Rheumatic mitral stenosis; Z95.0 Presence of cardiac pacemaker
CPT/HCPCS: 93306

== ENCOUNTER 2022-03-14 13:16 | Emergency (ER) | payer MEDICARE, SELFPAY ==
[2022-03-14] VITALS (16 sets, daily range): BP systolic 168–213; BP diastolic 81–101; PULSE 57–75; RESP 12–21; TEMP 36.1; O2SAT 94–99; BMI 26.4
--- NOTE | 2022-03-14 13:33 | DI.RAD.S_ITS ---
PROCEDURE: XR CHEST 1V INDICATIONS: chest pain TECHNIQUE: One view of the chest was acquired. COMPARISON: [facility], CR, XR CHEST 1V, 02/28/2018, 20:27. FINDINGS: Surgical changes and devices: Left-sided dual-chamber pacemaker present. Midline sternal wires noted. Lungs and pleura: There is obscuration left hemidiaphragm and blunting the left costophrenic angle Mediastinum: Heart size is enlarged, accentuated by low lung volumes. Atherosclerotic vascular calcification noted in the aortic arch. Bones and chest wall: No suspicious bony lesions. Overlying soft tissues appear unremarkable. IMPRESSION: Cardiomegaly accentuated by low lung volumes Left-sided pleural effusion with atelectasis and infiltrate Approved by: Paul Jerome M.D. on 03/14/2022 at 17:23
--- NOTE | 2022-03-14 13:36 | ED_ITS ---
HPI - Extremity Problem <Jv Hill PA-C - Last Filed: 03/15/22 12:06> General Chief complaint: Extremity Problem,Nontraumatic Stated complaint: LT SHOULDER SEVERE PAIN Time Seen by Provider: 03/14/22 13:34 Source: patient Mode of arrival: Ambulatory History of Present Illness HPI Narrative: Patient is an 81-year-old male who presents to the emergency room today with complaint of left shoulder pain it started this morning. Denies trauma to the left shoulder area and states the pain is completely resolved at this time. Pain is about the wound is evaluated but right now it is 0. Also denies shortness of breath with or without activity or chest pain. Related Data Home Medications Medication Instructions Recorded Confirmed Atorvastatin Calcium (Lipitor) 10 mg PO QDAY ##0 03/10/10 COENZYME Q10/VITAMIN E (CO-Q-10 200 mg PO QDAY ##0 02/21/13 200mg) Fish Oil 1,000 mg PO TID ##0 02/21/13 selenium 200 mcg tablet 100 mcg PO QDAY ##0 02/21/13 Previous Rx's Medication Instructions Recorded hydrocodone 5 mg-acetaminophen 325 1 tab PO Q6H PRN pain #7 tabs 22 mg tablet oxycodone-acetaminophen 2.5 mg-325 1 tab PO Q8H PRN pain #10 tabs 03/14/22 mg tablet (Percocet) Allergies Allergy/AdvReac Type Severity Reaction Status Date / Time aspirin [ASPIRIN] Allergy Severe ANEMIA Verified 03/14/22 13:31 NSAIDS (Non-Steroidal Allergy Severe GI Bleeding Verified 03/14/22 13:31 Anti-Inflamma [NSAIDS (NON-STEROIDAL ANTI-INFLAMMA] Penicillins Allergy Severe ASTHMA Verified 03/14/22 13:31 Review of Systems <Jv Hill PA-C - Last Filed: 03/15/22 12:06> Review of Systems Narrative: REVIEW OF SYSTEMS:. General: No weight change, generally healthy, no change in strength or exercise tolerance. No fever/chill. No fatigue. Head: No headaches, no vertigo, no injury. Eyes: Normal vision, no diplopia, no tearing, no scotomata, no pain. Ears: No change in hearing, no tinnitus, no bleeding, no vertigo. Nose: No epistaxis, no coryza, no obstruction, no discharge. Mouth: No dental difficulties, no gingival bleeding, no use of dentures. Neck: No stiffness, no pain, no tenderness, no noted masses. Chest: No dyspnea, no wheezing, no hemoptysis, no cough. Heart: No chest pains, no palpitations, no syncope, no orthopnea. Abdomen: No change in appetite, no dysphagia, no abdominal pains, no bowel habit changes, no emesis, no melena. Musculoskeletal: Left shoulder pain Neurologic: No weakness, no tremor, no seizures, no changes in mentation, no ataxia. Psychiatric: No depressive symptoms, no changes in sleep habits, no changes in thought content.. Patient History <Jv Hill PA-C - Last Filed: 03/15/22 12:06> Medical History Dyslipidemia H/O non-insulin dependent diabetes mellitus History of colon cancer HTN (hypertension) Surgical History Aortic valve vegetation H/O nasal septoplasty History of right hemicolectomy Social History Smoking Status: Never smoker Smoking Status: Never smoker alcohol intake frequency: holidays/special occasions only Substance Use Type: does not use Exam <Jv Hill PA-C - Last Filed: 03/15/22 12:06> Narrative Exam Narrative: Physical Exam: General: Normal appearance, well developed, well nourished, alert, and awake. Not in acute distress. ? Head: Normocephalic, no lesions. ?? Eyes: PERRLA, EOM's full, conjunctivae clear. ? Ears: EAC's clear, TM's normal. ?? Throat: Clear, no exudates, no lesions. ?? Neck: Supple, no masses, no thyromegaly, no bruits. ?? Chest: Lungs clear, no rales, no rhonchi, no wheezes. ?? Heart: RR, no murmurs, no rubs, no gallops. ?? Neuro: Physiological, no localizing findings, CN2-12 intact. ?? Extremities: Warm, well perfused, FROM, no deformities, no edema, no erythema. ?? PSYCHIATRIC: The mood is good, no blunted affect. Speech is clear. Thought process is linear, thought content is appropriate. The voice is without sig nificant inflection.. Musculoskeletal: Left shoulder has good strength and good range of motion on flexion-extension adduction abduction internal and external rotation. Shoulder is also nontender to palpation. Shoulder also has negative laxity for glenohumeral joint on exam. Initial Vital Signs Initial Vital Signs: Vital Signs Temperature 97.0 F L 03/14/22 13:31 Pulse Rate 68 03/14/22 13:31 Respiratory Rate 15 03/14/22 13:31 Blood Pressure 213/101 H 03/14/22 13:31 Pulse Oximetry 99 03/14/22 13:31 Oxygen Delivery Method 03/14/22 13:31 <Jamarcus Crouch DO - Last Filed: 03/17/22 11:49> Initial Vital Signs Initial Vital Signs: Vital Signs Temperature 97.0 F L 03/14/22 13:31 Pulse Rate 68 03/14/22 13:31 Respiratory Rate 15 03/14/22 13:31 Blood Pressure 213/101 H 03/14/22 13:31 Pulse Oximetry 99 03/14/22 13:31 Oxygen Delivery Method 03/14/22 13:31 Course <Jv Hill PA-C - Last Filed: 03/15/22 12:06> Orders Ordered: Discontinued Medications Sodium Chloride (Normal Saline 0.9%) 1,000 mls @ 150 mls/hr IV CONT TONIE Last Infusion: 03/14/22 19:48 Dose: 0 mls/hr Documented By: Admin: 03/14/22 14:40 Dose: 150 mls/hr Documented By: NR Vital Signs Vital signs: Vital Signs - 8 hr 03/14/22 13:31 03/14/22 13:51 03/14/22 13:51 Temperature 97.0 F L Pulse Rate 68 61 Respiratory Rate 15 Blood Pressure 213/101 H 191/90 H Pulse Oximetry 99 97 Oxygen Delivery Method Room Air 03/14/22 13:52 03/14/22 13:52 03/14/22 14:00 Temperature Pulse Rate 61 67 Respiratory Rate Blood Pressure 180/87 H Pulse Oximetry 99 94 Oxygen Delivery Method 03/14/22 14:30 03/14/22 15:00 03/14/22 15:33 Temperature Pulse Rate 60 61 57 L Respiratory Rate 17 21 Blood Pressure Pulse Oximetry 97 96 97 Oxygen Delivery Method 03/14/22 15:34 03/14/22 15:34 03/14/22 16:00 Temperature Pulse Rate 60 Respiratory Rate 13 Blood Pressure 172/84 H 168/81 H Pulse Oximetry 96 Oxygen Delivery Method 03/14/22 16:00 Temperature Pulse Rate 60 Respiratory Rate 15 Blood Pressure Pulse Oximetry 96 Oxygen Delivery Method <Jamarcus Crouch DO - Last Filed: 03/17/22 11:49> Orders Ordered: Discontinued Medications Sodium Chloride (Normal Saline 0.9%) 1,000 mls @ 150 mls/hr IV CONT TONIE Last Infusion: 03/14/22 19:48 Dose: 0 mls/hr Documented By: Admin: 03/14/22 14:40 Dose: 150 mls/hr Documented By: ALINA Vital Signs Vital signs: Vital Signs - 8 hr 03/14/22 13:31 03/14/22 13:51 03/14/22 13:51 Temperature 97.0 F L Pulse Rate 68 61 Respiratory Rate 15 Blood Pressure 213/101 H 191/90 H Pulse Oximetry 99 97 Oxygen Delivery Method Room Air 03/14/22 13:52 03/14/22 13:52 03/14/22 14:00 Temperature Pulse Rate 61 67 Respiratory Rate Blood Pressure 180/87 H Pulse Oximetry 99 94 Oxygen Delivery Method 03/14/22 14:30 03/14/22 15:00 03/14/22 15:33 Temperature Pulse Rate 60 61 57 L Respiratory Rate 17 21 Blood Pressure Pulse Oximetry 97 96 97 Oxygen Delivery Method 03/14/22 15:34 03/14/22 15:34 03/14/22 16:00 Temperature Pulse Rate 60 Respiratory Rate 13 Blood Pressure 172/84 H 168/81 H Pulse Oximetry 96 Oxygen Delivery Method 03/14/22 16:00 Temperature Pulse Rate 60 Respiratory Rate 15 Blood Pressure Pulse Oximetry 96 Oxygen Delivery Method MDM - Extremity (Nontraumatic) <Jv Hill PA-C - Last Filed: 03/15/22 12:06> Lab Data Result diagrams: 03/14/22 13:47 03/14/22 13:47 Labs: Lab Results 03/14/22 03/14/22 03/14/22 Range/Units 13:47 13:47 13:47 WBC 6.2 (4.5-11.0) X10^3/uL RBC 4.97 (4.5-5.9) X10^6/uL Hgb 15.0 (13.5-17.5) g/dL Hct 43.0 (41-53) % MCV 86.5 (80-100) fL MCH 30.2 (26-34) PG MCHC 34.9 (30-36) % RDW 14.3 (11.6-14.8) % Plt Count 182 (150-400) X10^3/uL Neut % (Auto) 73.6 (50-75) % Lymph % (Auto) 16.0 L (25-40) % [place] % (Auto) 8.2 (3-14) % Eos % (Auto) 1.6 L (2-4) % Baso % (Auto) 0.6 (0-2) % Neut # (Auto) 4500 (2540-9784) /uL Lymph # (Auto) 1000 L (8444-9126) /uL [place] # (Auto) 500 (0-900) /uL Eos # (Auto) 100 (0-450) /uL Baso # (Auto) 0 (0-100) /uL PT 11.1 (10.1-12.7) SECONDS INR 1.0 (0.9-1.3) APTT 30 (26-36) SECONDS D-Dimer (<500) ng/ml Sodium 134 L (137-145) mmol/L Potassium 4.6 (3.4-5.1) mmol/L Chloride 99 (98-107) mmol/L Carbon Dioxide 22 (22-32) mmol/L BUN 18 (9-20) mg/dL Creatinine 0.73 (0.66-1.25) mg/dL Estimated GFR > 60 (>60) mL/min BUN/Creatinine Ratio 24.7 H (6-22) Glucose 285 H (80-110) mg/dL Calcium 9.2 (8.4-10.2) mg/dL Magnesium 2.1 (1.6-2.3) mg/dL Total Bilirubin 0.5 (0.2-1.3) mg/dL AST 30 (17-59) IU/L ALT 30 (<50) IU/L Alkaline Phosphatase 140 H (38-126) U/L Total Creatine Kinase 85 (55-170) U/L CK-MB (CK-2) TNP CK-MB (CK-2) Rel Index TNP Troponin I 0.021 (0.01-0.034) ng/mL Total Protein 7.3 (6.3-8.2) g/dL Albumin 4.6 (3.5-5.0) g/dL Globulin 2.7 (1.7-4.1) g/dL Albumin/Globulin Ratio 1.7 (1.0-2.8) Lipase 104 (23-300) U/L 03/14/22 Range/Units 14:22 WBC (4.5-11.0) X10^3/uL RBC (4.5-5.9) X10^6/uL Hgb (13.5-17.5) g/dL Hct (41-53) % MCV (80-100) fL MCH (26-34) PG MCHC (30-36) % RDW (11.6-14.8) % Plt Count (150-400) X10^3/uL Neut % (Auto) (50-75) % Lymph % (Auto) (25-40) % [place] % (Auto) (3-14) % Eos % (Auto) (2-4) % Baso % (Auto) (0-2) % Neut # (Auto) (2241-9808) /uL Lymph # (Auto) (3758-8164) /uL [place] # (Auto) (0-900) /uL Eos # (Auto) (0-450) /uL Baso # (Auto) (0-100) /uL PT (10.1-12.7) SECONDS INR (0.9-1.3) APTT (26-36) SECONDS D-Dimer < 500 (<500) ng/ml Sodium (137-145) mmol/L Potassium (3.4-5.1) mmol/L Chloride (98-107) mmol/L Carbon Dioxide (22-32) mmol/L BUN (9-20) mg/dL Creatinine (0.66-1.25) mg/dL Estimated GFR (>60) mL/min BUN/Creatinine Ratio (6-22) Glucose (80-110) mg/dL Calcium (8.4-10.2) mg/dL Magnesium (1.6-2.3) mg/dL Total Bilirubin (0.2-1.3) mg/dL AST (17-59) IU/L ALT (<50) IU/L Alkaline Phosphatase (38-126) U/L Total Creatine Kinase (55-170) U/L CK-MB (CK-2) CK-MB (CK-2) Rel Index Troponin I (0.01-0.034) ng/mL Total Protein (6.3-8.2) g/dL Albumin (3.5-5.0) g/dL Globulin (1.7-4.1) g/dL Albumin/Globulin Ratio (1.0-2.8) Lipase (23-300) U/L Imaging Data Chest x-ray: Radiologist's Impression: PROCEDURE:? XR CHEST 1V ? INDICATIONS:? chest pain ? TECHNIQUE:? One view of the chest was acquired.? ? COMPARISON:? [facility], , XR CHEST 1V, 02/28/2018, 20:27. ? FINDINGS:? ? Surgical changes and devices:? Left-sided dual-chamber pacemaker present.? Midline sternal wires noted. ? Lungs and pleura:? There is obscuration left hemidiaphragm and blunting the left costophrenic angle ? Mediastinum:? Heart size is enlarged, accentuated by low lung volumes. Atherosclerotic vascular calcification noted in the aortic arch. ? Bones and chest wall:? No suspicious bony lesions.? Overlying soft tissues appear unremarkable.? ? IMPRESSION:? ? Cardiomegaly accentuated by low lung volumes ? Left-sided pleural effusion with atelectasis and infiltrate ? ? ? Approved by: Paul Jerome M.D. on 03/14/2022 at 17:23? [facility] Narrative Medical decision making narrative: Patient is a 81-year-old male presents to the emergency room today with complaint left-sided shoulder pain it started this morning. At this time patient states the pain has totally resolved or is a bottle 0-1. Denies any trauma but admits to his hypertension. Also admits to having open heart surgery in 2016, where fluid was drawn from around his heart. Labs ordered to rule out any urgent or emergent cardiac or pulmonary concerns this time. Patient meets criteria for D-dimer using the [place]rell PE algorhythm. Cardiac enzymes were received and within normal limits D-dimer was unremarkable. Chest x-ray results have impression of Cardiomegaly accentuated by low lung volumes and Left-sided pleural effusion with atelectasis and infiltrate. Discussed with . performed a bedside ultrasound of the heart and stated he did not discover any acute emergent concerns at this time. 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 Patient also agrees to plan <Jamarcus Crouch, DO - Last Filed: 03/17/22 11:49> Lab Data Labs: Lab Results 03/14/22 03/14/22 03/14/22 Range/Units 13:47 13:47 13:47 WBC 6.2 (4.5-11.0) X10^3/uL RBC 4.97 (4.5-5.9) X10^6/uL Hgb 15.0 (13.5-17.5) g/dL Hct 43.0 (41-53) % MCV 86.5 (80-100) fL MCH 30.2 (26-34) PG MCHC 34.9 (30-36) % RDW 14.3 (11.6-14.8) % Plt Count 182 (150-400) X10^3/uL Neut % (Auto) 73.6 (50-75) % Lymph % (Auto) 16.0 L (25-40) % [place] % (Auto) 8.2 (3-14) % Eos % (Auto) 1.6 L (2-4) % Baso % (Auto) 0.6 (0-2) % Neut # (Auto) 4500 (9606-0799) /uL Lymph # (Auto) 1000 L (1221-6902) /uL [place] # (Auto) 500 (0-900) /uL Eos # (Auto) 100 (0-450) /uL Baso # (Auto) 0 (0-100) /uL PT 11.1 (10.1-12.7) SECONDS INR 1.0 (0.9-1.3) APTT 30 (26-36) SECONDS D-Dimer (<500) ng/ml Sodium 134 L (137-145) mmol/L Potassium 4.6 (3.4-5.1) mmol/L Chloride 99 (98-107) mmol/L Carbon Dioxide 22 (22-32) mmol/L BUN 18 (9-20) mg/dL Creatinine 0.73 (0.66-1.25) mg/dL Estimated GFR > 60 (>60) mL/min BUN/Creatinine Ratio 24.7 H (6-22) Glucose 285 H (80-110) mg/dL Calcium 9.2 (8.4-10.2) mg/dL Magnesium 2.1 (1.6-2.3) mg/dL Total Bilirubin 0.5 (0.2-1.3) mg/dL AST 30 (17-59) IU/L ALT 30 (<50) IU/L Alkaline Phosphatase 140 H (38-126) U/L Total Creatine Kinase 85 (55-170) U/L CK-MB (CK-2) TNP CK-MB (CK-2) Rel Index TNP Troponin I 0.021 (0.01-0.034) ng/mL Total Protein 7.3 (6.3-8.2) g/dL Albumin 4.6 (3.5-5.0) g/dL Globulin 2.7 (1.7-4.1) g/dL Albumin/Globulin Ratio 1.7 (1.0-2.8) Lipase 104 (23-300) U/L 03/14/22 Range/Units 14:22 WBC (4.5-11.0) X10^3/uL RBC (4.5-5.9) X10^6/uL Hgb (13.5-17.5) g/dL Hct (41-53) % MCV (80-100) fL MCH (26-34) PG MCHC (30-36) % RDW (11.6-14.8) % Plt Count (150-400) X10^3/uL Neut % (Auto) (50-75) % Lymph % (Auto) (25-40) % [place] % (Auto) (3-14) % Eos % (Auto) (2-4) % Baso % (Auto) (0-2) % Neut # (Auto) (6601-6752) /uL Lymph # (Auto) (4119-0271) /uL [place] # (Auto) (0-900) /uL Eos # (Auto) (0-450) /uL Baso # (Auto) (0-100) /uL PT (10.1-12.7) SECONDS INR (0.9-1.3) APTT (26-36) SECONDS D-Dimer < 500 (<500) ng/ml Sodium (137-145) mmol/L Potassium (3.4-5.1) mmol/L Chloride (98-107) mmol/L Carbon Dioxide (22-32) mmol/L BUN (9-20) mg/dL Creatinine (0.66-1.25) mg/dL Estimated GFR (>60) mL/min BUN/Creatinine Ratio (6-22) Glucose (80-110) mg/dL Calcium (8.4-10.2) mg/dL Magnesium (1.6-2.3) mg/dL Total Bilirubin (0.2-1.3) mg/dL AST (17-59) IU/L ALT (<50) IU/L Alkaline Phosphatase (38-126) U/L Total Creatine Kinase (55-170) U/L CK-MB (CK-2) CK-MB (CK-2) Rel Index Troponin I (0.01-0.034) ng/mL Total Protein (6.3-8.2) g/dL Albumin (3.5-5.0) g/dL Globulin (1.7-4.1) g/dL Albumin/Globulin Ratio (1.0-2.8) Lipase (23-300) U/L Discharge Plan Departure Patient Disposition: Home Clinical Impression: Acute shoulder pain, Cardiac enlargement, Pleural effusion Instructions: DI for Shoulder Pain, DI for Pleural Effusion Activity Restrictions/Additional Instructions: *You have been diagnosed with [left shoulder pain left pleural effusion and an enlarged heart. Labs and diagnostics did not reveal any acute emergent concerns at this time. 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 I also suggest she return to the emergency room showing any emergent concerns arise.] I have written for some pain medicines to help with your pain management until you follow-up with your PCP or refinery operator crude unit. *What to do: *Please continue to take your regular medications as directed. [ ] New medication prescriptions sent to your pharmacy: [ ] [x] New medication written as a paper prescription [ ] No new medications given *Please follow up with your primary care provider in 2-3 days, call for an appointment. Let them know you were seen in the Emergency Department and that we ask that you be seen in follow up. We will electronically transmit a record of today's note if your PCP is in our system *If you do not have a primary care provider please contact the [facility] Resource line at [phone]. They will ask some questions about your medical history and help get you set up with a doctor in the community. *Return to Emergency Department if you should have any new, worsening or concerning symptoms, such as [fever greater than 101 F, shaking chills, worsening pain, persistent vomiting or other bothersome symptoms] Prescriptions: New oxycodone-acetaminophen [Percocet] 2.5-325 mg tablet 1 tab PO Q8H PRN (Reason: pain) Qty: 10 0RF No Action Atorvastatin Calcium (Lipitor) 10 mg PO QDAY Qty: 0 COENZYME Q10/VITAMIN E (CO-Q-10 200mg) 200 mg PO QDAY Qty: 0 Fish Oil 1,000 mg PO TID Qty: 0 selenium 200 MCG tablet 100 mcg PO QDAY Qty: 0 hydrocodone-acetaminophen 5-325 mg tablet 1 tab PO Q6H PRN (Reason: pain) Qty: 7 0RF Referrals: Costa Tellze MD [Primary Care Provider] - Visit Report Forms: Patient Portal/API <Jamarcus Crouch DO - Last Filed: 03/17/22 11:49> [facility] Attending Luciature Attestation: I was immediately available in the department for consultation. This documentation has been reviewed and I agree with assessment and plan. Supervised by Jamarcus Crouch DO
[2022-03-14 13:55] LABS: Add Manual Diff / Slide Review NO; Basophils Absolute Auto 0 /uL (0-100); Basophils Percent Auto 0.6 % (0-2); Eosinophils Absolute Auto 100 /uL (0-450); Eosinophils Percent Auto 1.6 % (2-4); Lymphocytes Absolute Auto 1000 /uL (1100-4500); Mean Corpuscular HGB Conc 34.9 % (30-36); Mean Corpuscular Hemoglobin 30.2 PG (26-34); Mean Corpuscular Volume 86.5 fL (80-100); Monocytes Absolute Auto 500 /uL (0-900); Monocytes Percent Auto 8.2 % (3-14); Neutrophils Absolute Auto 4500 /uL (1500-7000); Neutrophils Percent Auto 73.6 % (50-75); Platelet Count 182 X10^3/uL (150-400); Red Blood Cell Count 4.97 X10^6/uL (4.5-5.9); Red Cell Distribution Width 14.3 % (11.6-14.8); White Blood Cell Count 6.2 X10^3/uL (4.5-11.0)
[2022-03-14 14:01] LABS: Prothrombin Time 11.1 SECONDS (10.1-12.7)
[2022-03-14 14:04] LABS: PTT Partial Thromboplastin Tim 30 SECONDS (26-36)
[2022-03-14 14:14] LABS: Alanine Aminotransferase 30 IU/L (<50); Albumin 4.6 g/dL (3.5-5.0); Albumin Globulin Ratio 1.7 (1.0-2.8); Alkaline Phosphatase 140 U/L (38-126); Aspartate Aminotransferase 30 IU/L (17-59); BUN Creatinine Ratio 24.7 (6-22); Bilirubin Total 0.5 mg/dL (0.2-1.3); Blood Urea Nitrogen 18 mg/dL (9-20); Calcium 9.2 mg/dL (8.4-10.2); Carbon Dioxide 22 mmol/L (22-32); Chloride 99 mmol/L (98-107); Creatine Kinase 85 U/L (55-170); Estimated Glomerular Filt Rate > 60 mL/min (>60); Globulin 2.7 g/dL (1.7-4.1); Glucose 285 mg/dL (80-110); HEMOLYSIS 58 (0-50); Lipase 104 U/L (23-300); Magnesium 2.1 mg/dL (1.6-2.3); Potassium 4.6 mmol/L (3.4-5.1); Sodium 134 mmol/L (137-145); Total Protein 7.3 g/dL (6.3-8.2)
[2022-03-14 14:25] LABS: Troponin I 0.021 ng/mL (0.01-0.034)
[2022-03-14] MEDS: SODIUM CHLORIDE 0.9% 1,000 ML 150 ML IV (14:40)
[2022-03-14 15:00] LABS: D Dimer < 500 ng/ml (<500)
== END 2022-03-14 19:49 | disposition home or self-care (01) ==
PROVIDERS: Emergency Medicine; Emergency Provider Physician Assistant; Family Provider Internal Medicine; PCP Internal Medicine
DX: M25.512 Pain in left shoulder (principal); I51.7 Cardiomegaly; J90 Pleural effusion, not elsewhere classified
CPT/HCPCS: 36415; 71045; 80053; 82550; 83690; 83735; 84484; 85025; 85379; 85610; 85730; 93005; 93010; 96360; 96361; 99284

== ENCOUNTER → 2022-04-10 07:49 | Outpatient (CLI) | payer MEDICARE, SELFPAY ==
[2022-04-10 08:36] LABS: Hematocrit 40.3 % (41-53); Hemoglobin 14.1 g/dL (13.5-17.5); Mean Corpuscular Hemoglobin 30.2 PG (26-34); Mean Corpuscular Volume 86.2 fL (80-100); Platelet Count 164 X10^3/uL (150-400); Red Blood Cell Count 4.67 X10^6/uL (4.5-5.9); Red Cell Distribution Width 14.2 % (11.6-14.8); White Blood Cell Count 4.3 X10^3/uL (4.5-11.0)
[2022-04-10 08:48] LABS: Hemoglobin A1C% w Est Avg Glu 11.9 % (4.0-6.0)
[2022-04-10 09:05] LABS: Alanine Aminotransferase 24 IU/L (<50); Albumin Globulin Ratio 1.7 (1.0-2.8); Alkaline Phosphatase 85 U/L (38-126); Aspartate Aminotransferase 21 IU/L (17-59); BUN Creatinine Ratio 20.7 (6-22); Bilirubin Total 0.5 mg/dL (0.2-1.3); Blood Urea Nitrogen 17 mg/dL (9-20); Calcium 9.1 mg/dL (8.4-10.2); Carbon Dioxide 29 mmol/L (22-32); Chloride 97 mmol/L (98-107); Cholesterol 144 mg/dL (140-199); Estimated Glomerular Filt Rate > 60 mL/min (>60); Globulin 2.3 g/dL (1.7-4.1); Glucose 264 mg/dL (80-110); HDL Cholesterol 41 mg/dL (40-60); HEMOLYSIS < 15 (0-50); LDL Cholesterol Calculated 64 mg/dL (<100); Potassium 4.4 mmol/L (3.4-5.1); Sodium 136 mmol/L (137-145); Total Protein 6.3 g/dL (6.3-8.2); Triglycerides 193 mg/dL (35-150)
[2022-04-10 09:30] LABS: TSH w/ Reflex to FT4 3.18 uIU/mL (0.47-4.68)
[2022-04-10 09:33] LABS: Testosterone 11.6 ng/dL (71.8-623)
[2022-04-10 09:34] LABS: Prostate Specific Antigen < 0.064 ng/mL (0.10-4.00)
== END ==
PROVIDERS: Family Provider Internal Medicine; PCP Internal Medicine; Visit Provider Physician Assistant
DX: Z13.6 Encounter for screening for cardiovascular disorders (principal); C61 Malignant neoplasm of prostate
CPT/HCPCS: 36415; 80053; 80061; 83036; 84153; 84403; 84443; 85027

== ENCOUNTER → 2022-08-12 11:37 | Outpatient (CLI) | payer MEDICARE, SELFPAY ==
[2022-08-12 14:24] LABS: Prostate Specific Antigen < 0.064 ng/mL (0.10-4.00)
[2022-08-12 14:26] LABS: Testosterone 10.8 ng/dL (71.8-623)
== END ==
PROVIDERS: Family Provider Internal Medicine; PCP Internal Medicine; Referring Provider Urology; Visit Provider Urology
DX: C61 Malignant neoplasm of prostate (principal)
CPT/HCPCS: 36415; 84153; 84403

== ENCOUNTER → 2022-11-06 10:45 | Outpatient (CLI) | payer MEDICARE, SELFPAY ==
[2022-11-06 11:45] LABS: Add Manual Diff / Slide Review NO; Basophils Absolute Auto 0 /uL (0-100); Basophils Percent Auto 0.4 % (0-2); Eosinophils Absolute Auto 100 /uL (0-450); Eosinophils Percent Auto 1.4 % (2-4); Hematocrit 40.6 % (41-53); Hemoglobin 13.9 g/dL (13.5-17.5); Lymphocytes Absolute Auto 800 /uL (1100-4500); Lymphocytes Percent Auto 13.3 % (25-40); Mean Corpuscular HGB Conc 34.2 % (30-36); Mean Corpuscular Hemoglobin 30.8 PG (26-34); Monocytes Absolute Auto 500 /uL (0-900); Monocytes Percent Auto 8.1 % (3-14); Neutrophils Absolute Auto 4700 /uL (1500-7000); Neutrophils Percent Auto 76.8 % (50-75); Platelet Count 166 X10^3/uL (150-400); Red Blood Cell Count 4.52 X10^6/uL (4.5-5.9); White Blood Cell Count 6.1 X10^3/uL (4.5-11.0)
[2022-11-06 12:08] LABS: Alanine Aminotransferase 24 IU/L (<50); Albumin 4.1 g/dL (3.5-5.0); Albumin Globulin Ratio 1.7 (1.0-2.8); Alkaline Phosphatase 82 U/L (38-126); Aspartate Aminotransferase 22 IU/L (17-59); BUN Creatinine Ratio 43.6 (6-22); Bilirubin Total 0.3 mg/dL (0.2-1.3); Blood Urea Nitrogen 34 mg/dL (9-20); Carbon Dioxide 22 mmol/L (22-32); Chloride 103 mmol/L (98-107); Estimated Glomerular Filt Rate > 60 mL/min (>60); Globulin 2.4 g/dL (1.7-4.1); Glucose 141 mg/dL (80-110); HEMOLYSIS < 15 (0-50); Potassium 4.7 mmol/L (3.4-5.1); Sodium 136 mmol/L (137-145); Total Protein 6.5 g/dL (6.3-8.2); Uric Acid 3.1 mg/dL (3.5-8.5)
[2022-11-06 12:36] LABS: Thyroid Stimulating Hormone 2.37 uIU/mL (0.47-4.68)
[2022-11-06 12:40] LABS: Prostate Specific Antigen < 0.064 ng/mL (0.10-4.00)
[2022-11-07 06:08] LABS: Labcorp Hemoglobin (Hb) A1c 7.5 % (4.8-5.6)
== END ==
PROVIDERS: Family Provider Internal Medicine; PCP Family Medicine; Referring Provider Family Medicine; Visit Provider Family Medicine
DX: I10 Essential (primary) hypertension; E11.9 Type 2 diabetes mellitus without complications
CPT/HCPCS: 36415; 80053; 83036; 84153; 84443; 84550; 85025

== ENCOUNTER → 2023-02-19 07:03 | Outpatient (CLI) | payer MEDICARE, SELFPAY ==
[2023-02-19 09:30] LABS: Testosterone 47.2 ng/dL (71.8-623)
[2023-02-19 09:32] LABS: Prostate Specific Antigen < 0.064 ng/mL (0.10-4.00)
== END ==
PROVIDERS: Urology; Family Provider Internal Medicine; PCP Family Medicine; Referring Provider Family Medicine; Visit Provider Family Medicine
DX: C61 Malignant neoplasm of prostate (principal)
CPT/HCPCS: 36415; 84153; 84403

== ENCOUNTER → 2023-05-14 07:11 | Outpatient (CLI) | payer MEDICARE, SELFPAY ==
[2023-05-14 08:38] LABS: HEMOLYSIS < 15 (0-50); Iron 92 ug/dL (49-181)
[2023-05-14 08:44] LABS: Alanine Aminotransferase 23 IU/L (<50); Albumin 4.4 g/dL (3.5-5.0); Alkaline Phosphatase 77 U/L (38-126); Aspartate Aminotransferase 24 IU/L (17-59); BUN Creatinine Ratio 33.3 (6-22); Bilirubin Total 0.4 mg/dL (0.2-1.3); Blood Urea Nitrogen 27 mg/dL (9-20); Calcium 9.5 mg/dL (8.4-10.2); Carbon Dioxide 27 mmol/L (22-32); Chloride 100 mmol/L (98-107); Estimated Glomerular Filt Rate > 60 mL/min (>60); Globulin 2.2 g/dL (1.7-4.1); Glucose 201 mg/dL (80-110); HEMOLYSIS < 15 (0-50); Potassium 4.4 mmol/L (3.4-5.1); Sodium 135 mmol/L (137-145); Total Protein 6.6 g/dL (6.3-8.2)
[2023-05-14 08:46] LABS: Hemoglobin A1C% w Est Avg Glu 9.4 % (4.0-6.0)
[2023-05-14 08:50] LABS: Percent Iron Saturation 30 % (20-50); Total Iron Binding Capacity 305 ug/dL (261-462); Transferrin 239 mg/dL (206-381)
[2023-05-14 09:11] LABS: Prostate Specific Antigen Scrn < 0.064 ng/mL (0.1-4.0)
[2023-05-14 09:30] LABS: Vitamin B12 382 pg/mL (239-931)
== END ==
PROVIDERS: Family Provider Internal Medicine; PCP Family Medicine; Referring Provider Family Medicine; Visit Provider Family Medicine
DX: I10 Essential (primary) hypertension (principal); Z12.5 Encounter for screening for malignant neoplasm of prostate; I48.91 Unspecified atrial fibrillation; K92.2 Gastrointestinal hemorrhage, unspecified; M10.9 Gout, unspecified
CPT/HCPCS: 36415; 80053; 82043; 82570; 82607; 83036; 83540; 83550; G0103

== ENCOUNTER → 2023-05-14 11:57 | Outpatient (CLI) | payer MEDICARE, SELFPAY ==
[2023-05-14 14:40] LABS: Creatinine Urine Random 54.7 mg/dL
[2023-05-14 14:44] LABS: Microalbumin Urine Random < 0.6 mg/dL (0-1.6)
== END ==
PROVIDERS: Family Provider Internal Medicine; PCP Family Medicine; Referring Provider Family Medicine; Visit Provider Family Medicine
DX: I10 Essential (primary) hypertension (principal); I48.91 Unspecified atrial fibrillation; K92.2 Gastrointestinal hemorrhage, unspecified; M10.9 Gout, unspecified
CPT/HCPCS: 82043; 82570

== ENCOUNTER → 2023-10-05 08:55 | Outpatient (CLI) | payer MEDICARE, SELFPAY ==
[2023-10-05 10:43] LABS: Prostate Specific Antigen < 0.064 ng/mL (0.10-4.00)
== END ==
LOC: LAB 08:56
PROVIDERS: Family Provider Internal Medicine; PCP Family Medicine; Referring Provider Urology; Visit Provider Urology
DX: C61 Malignant neoplasm of prostate (principal)
CPT/HCPCS: 36415; 84153

== ENCOUNTER → 2023-11-26 07:52 | Outpatient (CLI) | payer MEDICARE, SELFPAY | PROVIDERS: Family Provider Internal Medicine; PCP Family Medicine; Visit Provider Physician Assistant | DX: J02.9 Acute pharyngitis, unspecified (principal) | CPT/HCPCS: 87070 ==

== ENCOUNTER → 2023-11-30 15:20 | Outpatient (CLI) | payer MEDICARE, SELFPAY ==
--- NOTE | 2023-11-30 15:23 | DI.RAD.S_ITS ---
PROCEDURE: XR CHEST 2V INDICATIONS: chronic discomfort upper chest TECHNIQUE: 2 views of the chest were acquired. COMPARISON: [facility], MAGNUS, XR CHEST 1V, 03/14/2022, 14:08. [facility], CR, XR CHEST 1V, 02/28/2018, 20:27. FINDINGS: Surgical changes and devices: Sternotomy. Left chest wall generator with cardiac leads. Lungs and pleura: Lungs are clear. No pleural effusions or pneumothorax. Mediastinum: Mediastinal contours are normal. Heart size is normal. Bones and chest wall: No suspicious bony abnormalities. Soft tissues appear unremarkable. IMPRESSION: No acute cardiopulmonary abnormality is seen. Dictated by: Laci Mccormick M.D. on 11/30/2023 at 16:37 Approved by: Laci Mccormick M.D. on 11/30/2023 at 16:37
== END ==
PROVIDERS: Family Provider Internal Medicine; PCP Family Medicine; Referring Provider Physician Assistant; Visit Provider Physician Assistant
DX: R09.A2 Foreign body sensation, throat (principal); Z95.0 Presence of cardiac pacemaker
CPT/HCPCS: 71046

== ENCOUNTER → 2024-01-20 07:56 | Outpatient (CLI) | payer MEDICARE, SELFPAY ==
[2024-01-20 09:01] LABS: Add Manual Diff / Slide Review NO; Basophils Absolute Auto 0 /uL (0-100); Basophils Percent Auto 0.3 % (0-2); Eosinophils Absolute Auto 100 /uL (0-450); Eosinophils Percent Auto 1.3 % (2-4); Hematocrit 45.8 % (41-53); Hemoglobin 15.5 g/dL (13.5-17.5); Lymphocytes Absolute Auto 900 /uL (1100-4500); Lymphocytes Percent Auto 13.5 % (25-40); Mean Corpuscular HGB Conc 33.8 % (30-36); Mean Corpuscular Hemoglobin 30.1 PG (26-34); Mean Corpuscular Volume 89.1 fL (80-100); Monocytes Absolute Auto 500 /uL (0-900); Monocytes Percent Auto 8.3 % (3-14); Neutrophils Absolute Auto 5100 /uL (1500-7000); Neutrophils Percent Auto 76.6 % (50-75); Platelet Count 182 X10^3/uL (150-400); Red Blood Cell Count 5.14 X10^6/uL (4.5-5.9); Red Cell Distribution Width 14.5 % (11.6-14.8); White Blood Cell Count 6.6 X10^3/uL (4.5-11.0)
[2024-01-20 09:11] LABS: Hemoglobin A1C% w Est Avg Glu 9.6 % (4.0-6.0)
[2024-01-20 09:25] LABS: Alanine Aminotransferase 21 IU/L (<50); Albumin 4.6 g/dL (3.5-5.0); Albumin Globulin Ratio 1.8 (1.0-2.8); Alkaline Phosphatase 78 U/L (38-126); Aspartate Aminotransferase 22 IU/L (17-59); BUN Creatinine Ratio 29.1 (6-22); Bilirubin Total 0.7 mg/dL (0.2-1.3); Blood Urea Nitrogen 23 mg/dL (9-20); Calcium 9.3 mg/dL (8.4-10.2); Carbon Dioxide 29 mmol/L (22-32); Chloride 102 mmol/L (98-107); Cholesterol 158 mg/dL (140-199); Estimated Glomerular Filt Rate > 60 mL/min (>60); Globulin 2.5 g/dL (1.7-4.1); Glucose 202 mg/dL (80-110); HDL Cholesterol 54 mg/dL (40-60); HEMOLYSIS < 15 (0-50); LDL Cholesterol Calculated 74 mg/dL (<100); Potassium 4.6 mmol/L (3.4-5.1); Sodium 136 mmol/L (137-145); Total Protein 7.1 g/dL (6.3-8.2); Triglycerides 148 mg/dL (35-150)
== END ==
PROVIDERS: Family Provider Internal Medicine; PCP Family Medicine; Referring Provider Family Medicine; Visit Provider Family Medicine
DX: E11.9 Type 2 diabetes mellitus without complications (principal); I10 Essential (primary) hypertension; I48.20 Chronic atrial fibrillation, unspecified; Z85.46 Personal history of malignant neoplasm of prostate
CPT/HCPCS: 36415; 80053; 80061; 83036; 85025

== ENCOUNTER → 2024-05-04 15:36 | Outpatient (CLI) | payer MEDICARE, SELFPAY ==
[2024-05-04 17:01] LABS: Add Manual Diff / Slide Review NO; Basophils Absolute Auto 0 /uL (0-100); Basophils Percent Auto 0.4 % (0-2); Eosinophils Absolute Auto 400 /uL (0-450); Eosinophils Percent Auto 4.6 % (2-4); Hematocrit 43.7 % (41-53); Hemoglobin 14.9 g/dL (13.5-17.5); Lymphocytes Absolute Auto 1100 /uL (1100-4500); Lymphocytes Percent Auto 13.8 % (25-40); Mean Corpuscular HGB Conc 34.1 % (30-36); Mean Corpuscular Hemoglobin 30.8 PG (26-34); Mean Corpuscular Volume 90.3 fL (80-100); Monocytes Absolute Auto 700 /uL (0-900); Monocytes Percent Auto 8.5 % (3-14); Neutrophils Absolute Auto 6000 /uL (1500-7000); Neutrophils Percent Auto 72.7 % (50-75); Platelet Count 179 X10^3/uL (150-400); Red Blood Cell Count 4.83 X10^6/uL (4.5-5.9); Red Cell Distribution Width 14.4 % (11.6-14.8); White Blood Cell Count 8.2 X10^3/uL (4.5-11.0)
== END ==
PROVIDERS: Family Provider Internal Medicine; PCP Family Medicine; Referring Provider Physician Assistant; Visit Provider Physician Assistant
DX: Z86.2 Personal history of diseases of the blood and blood-forming organs and certain disorders involving the immune mechanism (principal)
CPT/HCPCS: 85025

== ENCOUNTER → 2024-08-08 13:12 | Outpatient (CLI) | payer MEDICARE, SELFPAY ==
[2024-08-08 13:40] LABS: Hemoglobin A1C% w Est Avg Glu 6.3 % (4.0-6.0)
== END ==
PROVIDERS: Family Provider Internal Medicine; PCP Family Medicine; Referring Provider Physician Assistant; Visit Provider Physician Assistant
DX: E11.9 Type 2 diabetes mellitus without complications (principal)
CPT/HCPCS: 36415; 83036

== ENCOUNTER → 2024-08-09 14:51 | Outpatient (CLI) | payer MEDICARE, SELFPAY ==
[2024-08-09 16:18] LABS: Creatinine Urine Random 55.28 mg/dL
[2024-08-09 16:23] LABS: Microalbumin Urine Random < 0.6 mg/dL (0-1.6)
== END ==
LOC: LAB 14:52
PROVIDERS: Family Provider Internal Medicine; PCP Family Medicine; Referring Provider Physician Assistant; Visit Provider Physician Assistant
DX: E11.9 Type 2 diabetes mellitus without complications (principal)
CPT/HCPCS: 82043; 82570

== ENCOUNTER → 2024-09-21 07:24 | Outpatient (CLI) | payer MEDICARE, SELFPAY ==
[2024-09-21 09:42] LABS: Prostate Specific Antigen < 0.064 ng/mL (0.10-4.00)
== END ==
PROVIDERS: Family Provider Internal Medicine; PCP Family Medicine; Referring Provider Urology; Visit Provider Urology
DX: C61 Malignant neoplasm of prostate (principal)
CPT/HCPCS: 36415; 84153

== ENCOUNTER → 2024-11-16 06:49 | Outpatient (CLI) | payer MEDICARE, SELFPAY ==
[2024-11-16 08:16] LABS: Cholesterol 150 mg/dL (140-199); HDL Cholesterol 47 mg/dL (40-60); LDL Cholesterol Calculated 81 mg/dL (<100); Triglycerides 109 mg/dL (35-150)
[2024-11-17 06:45] LABS: Magnesium 2.2 mg/dL (1.6-2.3)
== END ==
PROVIDERS: Family Provider Internal Medicine; PCP Family Medicine; Referring Provider Internal Medicine Cardiovascular Disease; Visit Provider Internal Medicine Cardiovascular Disease
DX: I10 Essential (primary) hypertension (principal)
CPT/HCPCS: 36415; 80061; 83735

== ENCOUNTER 2024-11-25 03:51 | Emergency (ER) | payer MEDICARE, SELFPAY ==
[2024-11-25] VITALS (15 sets, daily range): BP systolic 141–207; BP diastolic 73–100; PULSE 59–64; RESP 9–29; TEMP 36.7; O2SAT 92–99; BMI 25.1
--- NOTE | 2024-11-25 03:54 | EKG_ITS ---
[address] [address] Test Date: 2024-11-25 Pat Name: Mk Pinzon Department: 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
--- NOTE | 2024-11-25 03:54 | DI.RAD.S_ITS ---
PROCEDURE: XR CHEST 1V INDICATIONS: Chest Pain TECHNIQUE: One view of the chest was acquired. COMPARISON: [facility], CR, XR CHEST 2V, 11/30/2023, 14:32. FINDINGS: Surgical changes and devices: Sternal wires and pacemaker. Lungs and pleura: Lungs are clear. No pleural effusions or pneumothorax. Mediastinum: Mediastinal contours appear normal. Heart size is enlarged. Bones and chest wall: No suspicious bony lesions. Overlying soft tissues appear unremarkable. IMPRESSION: No acute pulmonary process. The above findings are concordant with preliminary report. Dictated by: Meghan Silva M.D. on 11/25/2024 at 9:42 Approved by: Meghan Silva M.D. on 11/25/2024 at 9:43
--- NOTE | 2024-11-25 04:04 | ED_ITS ---
HPI - Chest Pain <Lucian JohnElizabethIrasema Sparrow, DO - Last Filed: 11/25/24 19:38> General Chief Complaint: Chest Pain Stated Complaint: Chest Pain Time Seen by Provider: 11/25/24 03:53 Source: patient Mode of arrival: Ambulatory Limitations: no limitations History of Present Illness HPI narrative: 84-year-old male history of hypertension, parosymal afib, SSS, pacemaker, LVOF obstruction, dyslipidemia, diabetes, CVA on Plavix recently seen by chemical engineering teacher presents tonight with chest pain described as dull steady pain rubbing against his his heart is how he describes it. He did take 1 baby aspirin prior to his arrival but states that he is not supposed to be on aspirin as he has had 2 bleeding ulcers in the past since being on aspirin and had to have 2 units of blood transfusion in the past. Since arriving here his pain is completely chest pain-free while sitting up now. Other than what is stated 14 point review of system is negative Related Data Home Medications Medication Instructions Recorded Confirmed COENZYME Q10/VITAMIN E (CO-Q-10 200 mg PO QDAY ##0 02/21/13 08/08/24 200mg) Fish Oil 1,000 mg PO TID ##0 02/21/13 08/08/24 Super vitamin C, D and zinc PO 09/10/22 08/08/24 carvedilol 12.5 mg tablet 12.5 mg PO BID 09/10/22 08/08/24 hydroxyapatite 275 mg calcium 1 cap PO DAILY 09/10/22 08/08/24 (1,100 mg) capsule Previous Rx's Medication Instructions Recorded blood sugar diagnostic (Contour #100 ea 03/21/24 Next Test Strips) lancets 30 gauge (Advocate Lancet) #100 ea 03/21/24 pen needle, diabetic 29 gauge x #100 ea 05/25/24 1/2 (Ultra-Thin II Insulin Pen [place]) amlodipine 5 mg tablet 2.5 mg (1/2 x 5 mg) PO DAILY #45 06/26/24 tabs atorvastatin 10 mg tablet 10 mg PO DAILY #90 tabs 06/26/24 clopidogrel 75 mg tablet 75 mg PO DAILY #90 tabs 06/26/24 dapagliflozin propanediol 10 mg 10 mg PO DAILY #90 tabs 06/26/24 tablet (Farxiga) metformin 500 mg tablet 1,000 mg (2 x 500 mg) PO BID #360 08/21/24 tabs glipizide 5 mg tablet 5 mg PO DAILY #90 tabs 11/23/24 Allergies Allergy/AdvReac Type Severity Reaction Status Date / Time aspirin [ASPIRIN] Allergy Severe ANEMIA Verified 08/08/24 12:56 NSAIDS (Non-Steroidal Allergy Severe GI Bleeding Verified 08/08/24 12:56 Anti-Inflamma [NSAIDS (NON-STEROIDAL ANTI-INFLAMMA] Penicillins Allergy Severe ASTHMA Verified 08/08/24 12:56 Review of Systems <Lucian Sparrow DO - Last Filed: 11/25/24 19:38> Review of Systems ROS Unobtainable: All systems reviewed & are unremarkable except as noted in HPI and below Patient History <Lucian Sparrow DO - Last Filed: 11/25/24 19:38> Medical History (Updated 11/25/24 @ 08:04 by Elsy Carrasquillo DO) Hyperlipidemia Type 2 diabetes mellitus Osteoarthritis (~1984) Asthma (~1950) Osteoporosis (~1984) Vertigo (~1979) History of urinary incontinence (~2020) History of colon cancer Vision disorder Stroke (~2014) Gout (~2009) Hearing loss (~1972) Colon polyps Atrial fibrillation (~2017) Skin cancer (~2018) History of prostate cancer (~2019) History of colon cancer (~2009) H/O non-insulin dependent diabetes mellitus Dyslipidemia HTN (hypertension) (~2002) Anemia (~2008) Surgical History History of aortic valve replacement Anesthesia Pacemaker (~2017) H/O nasal septoplasty History of right hemicolectomy (~02/2010) Aortic valve vegetation (~11/2015) Family History Father Cancer Hypertension Stroke Mother Mental health problem Sister Hyperlipidemia Grandfather History of heart disease Grandfather History of heart disease Social History Smoking Status: Former smoker Smoking Status: Former smoker alcohol intake frequency: holidays/special occasions only Exam <Lucian Sparrow DO - Last Filed: 11/25/24 19:38> Narrative Exam Narrative: GENERAL: [84] year old patient appears stated age. Well-developed patient, in mild distress. HEAD: Atraumatic. Normocephalic. EYES: Pupils equal round and reactive. Extraocular motions intact. No scleral icterus. No injection or drainage. ENT: Nose without bleeding, purulent drainage. Throat without erythema, tonsillar hypertrophy or exudate. Airway patent. NECK: Trachea midline. Non tender CARDIOVASCULAR: Regular rate and rhythm without murmurs, gallops, or rubs. RESPIRATORY: Clear to auscultation. Breath sounds equal bilaterally. No wheezes, rales, or rhonchi. GASTROINTESTINAL: Abdomen soft, non-tender, nondistended. EXTREMITIES: No edema or joint tenderness. BACK: Nontender without deformity or crepitance. No flank tenderness. NEURO: AOx3. GCS 15 nonfocal neuro exam SKIN: No rash or erythema of visible areas Initial Vital Signs Initial Vital Signs: Vital Signs Temperature 98.1 F 11/25/24 04:03 Pulse Rate 61 11/25/24 04:03 Respiratory Rate 12 11/25/24 04:03 Blood Pressure 207/98 H 11/25/24 04:03 Pulse Oximetry 97 11/25/24 04:03 Oxygen Delivery Method Room Air 11/25/24 04:03 <Elsy Carrasquillo DO - Last Filed: 11/25/24 08:58> Initial Vital Signs Initial Vital Signs: Vital Signs Temperature 98.1 F 11/25/24 04:03 Pulse Rate 61 11/25/24 04:03 Respiratory Rate 12 11/25/24 04:03 Blood Pressure 207/98 H 11/25/24 04:03 Pulse Oximetry 97 11/25/24 04:03 Oxygen Delivery Method Room Air 11/25/24 04:03 Scores <Lucian Sparrow DO - Last Filed: 11/25/24 19:38> HEART Score Heart Score history: Moderately Suspicious Heart Score EKG: Normal Heart Score Age: > or = 65 years old Heart Score risk factors: > 3 risk factors or hx of atherosclerotic disease Heart Score troponin: < or = to normal limit Heart Score Total: 5 <Elsy Carrasquillo DO - Last Filed: 11/25/24 08:58> HEART Score Heart Score Total: 5 Course <Lucian Sparrow DO - Last Filed: 11/25/24 19:38> Orders Ordered: Discontinued Medications Nitroglycerin (Nitroglycerin Oint 1 Inch/Gm Oint...G.) 1 inch TOP NOW ONE Stop: 11/25/24 04:42 Last Admin: 11/25/24 04:48 Dose: 1 inch Documented By: YANETH Vital Signs Vital signs: Vital Signs - 8 hr 11/25/24 04:03 11/25/24 04:03 11/25/24 04:20 Temperature 98.1 F Pulse Rate 61 Respiratory Rate 12 Blood Pressure 207/98 H 199/100 H Pulse Oximetry 97 Oxygen Delivery Method Room Air 11/25/24 04:20 11/25/24 04:30 11/25/24 04:31 Temperature Pulse Rate 60 60 Respiratory Rate 21 9 L Blood Pressure 172/83 H Pulse Oximetry 99 97 Oxygen Delivery Method Room Air Room Air 11/25/24 04:31 11/25/24 04:50 11/25/24 04:50 Temperature Pulse Rate 60 62 Respiratory Rate 11 L 21 Blood Pressure 180/84 H Pulse Oximetry 97 93 Oxygen Delivery Method Room Air Room Air 11/25/24 05:00 11/25/24 05:00 11/25/24 05:30 Temperature Pulse Rate 62 Respiratory Rate 11 L Blood Pressure 177/79 H 141/73 H Pulse Oximetry 92 Oxygen Delivery Method Room Air 11/25/24 05:30 11/25/24 06:40 11/25/24 06:41 Temperature Pulse Rate 59 L 61 Respiratory Rate 12 29 H 9 L Blood Pressure Pulse Oximetry 93 97 Oxygen Delivery Method Room Air Room Air 11/25/24 06:41 11/25/24 07:00 11/25/24 07:01 Temperature Pulse Rate 61 60 Respiratory Rate 20 15 Blood Pressure 172/88 H Pulse Oximetry 95 97 Oxygen Delivery Method 11/25/24 07:01 11/25/24 07:43 11/25/24 08:00 Temperature Pulse Rate 64 60 Respiratory Rate 20 Blood Pressure 165/87 H Pulse Oximetry 98 98 Oxygen Delivery Method 11/25/24 08:30 11/25/24 08:44 11/25/24 08:44 Temperature Pulse Rate 61 60 Respiratory Rate 15 20 Blood Pressure 172/87 H Pulse Oximetry 95 96 Oxygen Delivery Method <Elsy Carrasquillo, - Last Filed: 11/25/24 08:58> Orders Ordered: Discontinued Medications Nitroglycerin (Nitroglycerin Oint 1 Inch/Gm Oint...G.) 1 inch TOP NOW ONE Stop: 11/25/24 04:42 Last Admin: 11/25/24 04:48 Dose: 1 inch Documented By: YANETH Vital Signs Vital signs: Vital Signs - 8 hr 11/25/24 04:03 11/25/24 04:03 11/25/24 04:20 Temperature 98.1 F Pulse Rate 61 Respiratory Rate 12 Blood Pressure 207/98 H 199/100 H Pulse Oximetry 97 Oxygen Delivery Method Room Air 11/25/24 04:20 11/25/24 04:30 11/25/24 04:31 Temperature Pulse Rate 60 60 Respiratory Rate 21 9 L Blood Pressure 172/83 H Pulse Oximetry 99 97 Oxygen Delivery Method Room Air Room Air 11/25/24 04:31 11/25/24 04:50 11/25/24 04:50 Temperature Pulse Rate 60 62 Respiratory Rate 11 L 21 Blood Pressure 180/84 H Pulse Oximetry 97 93 Oxygen Delivery Method Room Air Room Air 11/25/24 05:00 11/25/24 05:00 11/25/24 05:30 Temperature Pulse Rate 62 Respiratory Rate 11 L Blood Pressure 177/79 H 141/73 H Pulse Oximetry 92 Oxygen Delivery Method Room Air 11/25/24 05:30 11/25/24 06:40 11/25/24 06:41 Temperature Pulse Rate 59 L 61 Respiratory Rate 12 29 H 9 L Blood Pressure Pulse Oximetry 93 97 Oxygen Delivery Method Room Air Room Air 11/25/24 06:41 11/25/24 07:00 11/25/24 07:01 Temperature Pulse Rate 61 60 Respiratory Rate 20 15 Blood Pressure 172/88 H Pulse Oximetry 95 97 Oxygen Delivery Method 11/25/24 07:01 11/25/24 07:43 11/25/24 08:00 Temperature Pulse Rate 64 60 Respiratory Rate 20 Blood Pressure 165/87 H Pulse Oximetry 98 98 Oxygen Delivery Method 11/25/24 08:30 11/25/24 08:44 11/25/24 08:44 Temperature Pulse Rate 61 60 Respiratory Rate 15 20 Blood Pressure 172/87 H Pulse Oximetry 95 96 Oxygen Delivery Method MDM - Chest Pain <Lucian Sparrow, - Last Filed: 11/25/24 19:38> Lab Data 11/25/24 04:08 05/03/25 04:08 Labs: Lab Results 11/25/24 11/25/24 Range/Units 04:08 06:15 WBC 5.9 (4.5-11.0) X10^3/uL RBC 5.09 (4.5-5.9) X10^6/uL Hgb 15.7 (13.5-17.5) g/dL Hct 46.0 (41-53) % MCV 90.3 (80-100) fL MCH 30.8 (26-34) PG MCHC 34.1 (30-36) % RDW 14.5 (11.6-14.8) % Plt Count 160 (150-400) X10^3/uL Neut % (Auto) 68.4 (50-75) % Lymph % (Auto) 18.4 L (25-40) % [place] % (Auto) 11.2 (3-14) % Eos % (Auto) 1.4 L (2-4) % Baso % (Auto) 0.6 (0-2) % Neut # (Auto) 4000 (4621-6754) /uL Lymph # (Auto) 1100 (0858-2454) /uL [place] # (Auto) 700 (0-900) /uL Eos # (Auto) 100 (0-450) /uL Baso # (Auto) 0 (0-100) /uL PT 10.6 (9.4-12.5) SECONDS INR 0.9 (0.9-1.3) APTT 36 (25.1-36.5) SECONDS Sodium 137 (137-145) mmol/L Potassium 4.0 (3.4-5.1) mmol/L Chloride 101 (98-107) mmol/L Carbon Dioxide 26 (22-32) mmol/L BUN 27 H (9-20) mg/dL Creatinine 1.04 (0.66-1.25) mg/dL Estimated GFR > 60 (>60) mL/min BUN/Creatinine Ratio 26.0 H (6-22) Glucose 165 H (70-99) mg/dL Lactate 1.3 (0.7-2.1) mmol/L Calcium 9.2 (8.4-10.2) mg/dL Magnesium 2.3 (1.6-2.3) mg/dL Total Bilirubin 0.5 (0.2-1.3) mg/dL AST 30 (17-59) IU/L ALT 27 (<50) IU/L Alkaline Phosphatase 69 (38-126) U/L Total Creatine Kinase 83 (55-170) U/L Troponin I 0.012 < 0.012 (0.01-0.034) ng/mL NT-Pro-B Natriuret Pep 596 H (<450) pg/mL Total Protein 7.1 (6.3-8.2) g/dL Albumin 4.8 (3.5-5.0) g/dL Globulin 2.3 (1.7-4.1) g/dL Albumin/Globulin Ratio 2.1 (1.0-2.8) Lipase 131 (23-300) U/L Imaging Data Chest x-ray: Radiologist's Impression: PROCEDURE: XR CHEST 2V INDICATIONS: chronic discomfort upper chest TECHNIQUE: 2 views of the chest were acquired. COMPARISON: [facility], CR, XR CHEST 1V, 03/14/2022, 14:08. [facility], CR, XR CHEST 1V, 02/28/2018, 20:27. FINDINGS: Surgical changes and devices: Sternotomy. Left chest wall generator with cardiac leads. Lungs and pleura: Lungs are clear. No pleural effusions or pneumothorax. Mediastinum: Mediastinal contours are normal. Heart size is normal. Bones and chest wall: No suspicious bony abnormalities. Soft tissues appear unremarkable. IMPRESSION: No acute cardiopulmonary abnormality is seen. Dictated by: Laci Forbes ECG Data Interpretation: A-Paced LAFB HR 61 WI 346 QRS [address]-t wave change Per EKG report compared [facility] Narrative Medical decision making narrative: All lab work vital signs nurse triage note medication list and all previous ER visits imaging modalities all reviewed. Patient took 1 baby aspirin prior to his arrival but none more was given due to his history of bleeding ulcers x2 that required 2 units of blood transfusion he is currently on Plavix. Patient has been chest pain-free here the entire time with 2 troponins that are negative and in the normal range. Chest x-ray did not show any acute process. Patient has a heart score 5 and has a pacemaker. Case discussed with Dr. Reddy, chemical engineering teacher on-call who recommended patient be transferred to [facility] or any other facility that is able to do a chemical nuclear stress test. Differential diagnosis includes STEMI, NSTEMI, unstable angina. Patient signed out to at shift change pending final disposition. 11/25/[address] Carrasquillo: Patient signed out to myself. Patient presents with concerning cardiac history, patient has had 2- troponins, lab workup was unremarkable except for BNP of 596, BUN 27. Chest x-ray showed mild obstructive airway changes, bipolar left venous pacemaker, postop changes from previous cardiac surgeries but no acute abnormality. EKG showed atrial paced rhythm, left anterior fascicular block no acute ST elevation or depression. Rate of 61. Patient has echo from 12/2021 which showed EF of 55-60% with moderate to severe proximal septal thickening LV outflow tract velocity 3 m/sec, dynamic LV outflow tract obstruction. There is some restriction of the posterior mitral leaflet. No significant mitral stenosis trace mitral regurg. Discrete nodule thickening of the non coronary cusp no significant aortic stenosis or regurg. Mild atherosclerotic plaque of the aortic arch. Patient seen evaluated by myself. On exam heart is regular rate and rhythm, lungs are clear, nontender on exam. Patient has 1 inch nitro placed paced, did not take aspirin secondary to history of GI bleed. Case has been discussed with Dr. Reddy cardiology at [facility] who recommended transfer for nuclear med stress test which we do not have available at our facility. Patient is reluctant for transfer states he was scheduled for a stress test in the next week. He states his symptoms resolved immediately after being sat upright in the bed and before any nitro paste was placed. Did discuss risks versus benefits. At 8:[address] Golden patient prefers to discharge home. After review Dr. Golden does not recommend that he be discharged she notes he has a large calcified lesion that was removed surgically and has of uncommon variant of hypertrophic cardiomyopathy she does recommend transfer still for stress testing. She does note that we could obtain echo and a double his metoprolol. He was paced so his heart rate being in the 60s is not an issue. But she would not recommend discharge home. After further discussion with the patient recommendations from 2 chemical engineering teacher that patient continue to be transferred to a larger facility for stress testing as well as increasing his metoprolol dose and obtaining an echo to see if there was any major changes patient states that does not wish to do this and prefers discharge home. We did discuss risks in depth. His old echo as well as prior workups and their concern for outflow obstruction versus coronary artery disease. Patient expresses understanding does have a stress test scheduled for on the 07 of December. Asked if he reach out to the chemical engineering teacher have that rescheduled. I did also update the chemical engineering teacher that he elected to leave against medical advice. On relayed all of the recommendations. <Elsy Carrasquillo, - Last Filed: 11/25/24 08:58> Lab Data Labs: Lab Results 11/25/24 11/25/24 Range/Units 04:08 06:15 WBC 5.9 (4.5-11.0) X10^3/uL RBC 5.09 (4.5-5.9) X10^6/uL Hgb 15.7 (13.5-17.5) g/dL Hct 46.0 (41-53) % MCV 90.3 (80-100) fL MCH 30.8 (26-34) PG MCHC 34.1 (30-36) % RDW 14.5 (11.6-14.8) % Plt Count 160 (150-400) X10^3/uL Neut % (Auto) 68.4 (50-75) % Lymph % (Auto) 18.4 L (25-40) % [place] % (Auto) 11.2 (3-14) % Eos % (Auto) 1.4 L (2-4) % Baso % (Auto) 0.6 (0-2) % Neut # (Auto) 4000 (5941-4780) /uL Lymph # (Auto) 1100 (6287-8817) /uL [place] # (Auto) 700 (0-900) /uL Eos # (Auto) 100 (0-450) /uL Baso # (Auto) 0 (0-100) /uL PT 10.6 (9.4-12.5) SECONDS INR 0.9 (0.9-1.3) APTT 36 (25.1-36.5) SECONDS Sodium 137 (137-145) mmol/L Potassium 4.0 (3.4-5.1) mmol/L Chloride 101 (98-107) mmol/L Carbon Dioxide 26 (22-32) mmol/L BUN 27 H (9-20) mg/dL Creatinine 1.04 (0.66-1.25) mg/dL Estimated GFR > 60 (>60) mL/min BUN/Creatinine Ratio 26.0 H (6-22) Glucose 165 H (70-99) mg/dL Lactate 1.3 (0.7-2.1) mmol/L Calcium 9.2 (8.4-10.2) mg/dL Magnesium 2.3 (1.6-2.3) mg/dL Total Bilirubin 0.5 (0.2-1.3) mg/dL AST 30 (17-59) IU/L ALT 27 (<50) IU/L Alkaline Phosphatase 69 (38-126) U/L Total Creatine Kinase 83 (55-170) U/L Troponin I 0.012 < 0.012 (0.01-0.034) ng/mL NT-Pro-B Natriuret Pep 596 H (<450) pg/mL Total Protein 7.1 (6.3-8.2) g/dL Albumin 4.8 (3.5-5.0) g/dL Globulin 2.3 (1.7-4.1) g/dL Albumin/Globulin Ratio 2.1 (1.0-2.8) Lipase 131 (23-300) U/L MDM Narrative Medical decision making narrative: All lab work vital signs nurse triage note medication list and all previous ER visits imaging modalities all reviewed. Patient took 1 baby aspirin prior to his arrival but none more was given due to his history of bleeding ulcers x2 that required 2 units of blood transfusion he is currently on Plavix. Patient has been chest pain-free here the entire time with 2 troponins that are negative and in the normal range. Chest x-ray did not show any acute process. Patient has a heart score 5 and has a pacemaker. Case discussed with Dr. Reddy, chemical engineering teacher on-call who recommended patient be transferred to [facility] or any other facility that is able to do a chemical nuclear stress test. Differential diagnosis includes STEMI, NSTEMI, unstable angina. 11/25/[address] Carrasquillo: Patient signed out to myself. Patient presents with concerning cardiac history, patient has had 2- troponins, lab workup was unremarkable except for BNP of 596, BUN 27. Chest x-ray showed mild obstructive airway changes, bipolar left venous pacemaker, postop changes from previous cardiac surgeries but no acute abnormality. EKG showed atrial paced rhythm, left anterior fascicular block no acute ST elevation or depression. Rate of 61. Patient has echo from 12/2021 which showed EF of 55-60% with moderate to severe proximal septal thickening LV outflow tract velocity 3 m/sec, dynamic LV outflow tract obstruction. There is some restriction of the posterior mitral leaflet. No significant mitral stenosis trace mitral regurg. Discrete nodule thickening of the non coronary cusp no significant aortic stenosis or regurg. Mild atherosclerotic plaque of the aortic arch. Patient seen evaluated by myself. On exam heart is regular rate and rhythm, lungs are clear, nontender on exam. Patient has 1 inch nitro placed paced, did not take aspirin secondary to history of GI bleed. Case has been discussed with Dr. Reddy cardiology at [facility] who recommended transfer for nuclear med stress test which we do not have available at our facility. Patient is reluctant for transfer states he was scheduled for a stress test in the next week. He states his symptoms resolved immediately after being sat upright in the bed and before any nitro paste was placed. Did discuss risks versus benefits. At 8:[address] Golden patient prefers to discharge home. After review Dr. Golden does not recommend that he be discharged she notes he has a large calcified lesion that was removed surgically and has of uncommon variant of hypertrophic cardiomyopathy she does recommend transfer still for stress testing. She does note that we could obtain echo and a double his metoprolol. He was paced so his heart rate being in the 60s is not an issue. But she would not recommend discharge home. After further discussion with the patient recommendations from 2 chemical engineering teacher that patient continue to be transferred to a larger facility for stress testing as well as increasing his metoprolol dose and obtaining an echo to see if there was any major changes patient states that does not wish to do this and prefers discharge home. We did discuss risks in depth. His old echo as well as prior workups and their concern for outflow obstruction versus coronary artery disease. Patient expresses understanding does have a stress test scheduled for on the 07 of December. Asked if he reach out to the chemical engineering teacher have that rescheduled. I did also update the chemical engineering teacher that he elected to leave against medical advice. On relayed all of the recommendations. Discharge Plan Departure Patient Disposition: Left Against Medical Advice Clinical Impression: Chest pain Activity Restrictions/Additional Instructions: It was not recommended by the day or night chemical engineering teacher that you discharge home. They do recommend that you get transferred to a larger facility for stress testing with your cardiac history. He also spoke with the chemical engineering teacher today they recommended getting an echo today and doubling your beta julien. Please call the chemical engineering teacher Wednesday morning to see if they can move your currently scheduled stress test up to a sooner date. You can return at any time for symptoms. Prescriptions: No Action COENZYME Q10/VITAMIN E (CO-Q-10 200mg) 200 mg PO QDAY Qty: 0 Fish Oil 1,000 mg PO TID Qty: 0 (DME) Contour Next Test Strips Strip See Rx Instructions .Route Qty: 100 2RF Rx Instructions: As directed (DME) lancets [Advocate Lancet] 30 gauge misc See Rx Instructions .Route Qty: 100 1RF Rx Instructions: Use to check blood sugar up to 4 times per day (DME) pen needle, diabetic [Ultra-Thin II Ins Pen [place]] 29 gauge x 1/2 needle See Rx Instructions .Route Qty: 100 1RF Rx Instructions: use to inject ozempic atorvastatin 10 mg tablet 10 mg PO DAILY Qty: 90 3RF clopidogrel 75 mg tablet 75 mg PO DAILY Qty: 90 3RF Rx Instructions: [facility] fill amlodipine 5 mg tablet 2.5 mg PO DAILY Qty: 45 3RF Rx Instructions: Take 1/2 tablet once a day Farxiga 10 mg tablet 10 mg PO DAILY Qty: 90 3RF metformin 500 mg tablet 1,000 mg PO BID Qty: 360 3RF Rx Instructions: Take 2 500 mg tabs twice a day for a total of 2,000 mg glipizide 5 mg tablet 5 mg PO DAILY Qty: 90 3RF carvedilol 12.5 mg tablet 12.5 mg PO BID hydroxyapatite 275 mg calcium (1,100 mg) capsule 1 cap PO DAILY Super vitamin C, D and zinc 900 mg PO Referrals: Stewart Kevin MD [Physician] - Merlin Saenz DO [Primary Care Provider] - Stand Alone Forms: Patient Portal/API, Against Med. Advice (Chilean)
[2024-11-25 04:16] LABS: Add Manual Diff / Slide Review NO; Basophils Absolute Auto 0 /uL (0-100); Basophils Percent Auto 0.6 % (0-2); Eosinophils Absolute Auto 100 /uL (0-450); Eosinophils Percent Auto 1.4 % (2-4); Hemoglobin 15.7 g/dL (13.5-17.5); Lymphocytes Absolute Auto 1100 /uL (1100-4500); Lymphocytes Percent Auto 18.4 % (25-40); Mean Corpuscular HGB Conc 34.1 % (30-36); Mean Corpuscular Hemoglobin 30.8 PG (26-34); Mean Corpuscular Volume 90.3 fL (80-100); Monocytes Absolute Auto 700 /uL (0-900); Monocytes Percent Auto 11.2 % (3-14); Neutrophils Absolute Auto 4000 /uL (1500-7000); Neutrophils Percent Auto 68.4 % (50-75); Platelet Count 160 X10^3/uL (150-400); Red Blood Cell Count 5.09 X10^6/uL (4.5-5.9); Red Cell Distribution Width 14.5 % (11.6-14.8); White Blood Cell Count 5.9 X10^3/uL (4.5-11.0)
[2024-11-25 04:24] LABS: INR 0.9 (0.9-1.3); Prothrombin Time 10.6 SECONDS (9.4-12.5)
[2024-11-25 04:27] LABS: Lactate (Lactic Acid) 1.3 mmol/L (0.7-2.1)
[2024-11-25 04:28] LABS: Alanine Aminotransferase 27 IU/L (<50); Albumin 4.8 g/dL (3.5-5.0); Albumin Globulin Ratio 2.1 (1.0-2.8); Alkaline Phosphatase 69 U/L (38-126); Aspartate Aminotransferase 30 IU/L (17-59); Bilirubin Total 0.5 mg/dL (0.2-1.3); Blood Urea Nitrogen 27 mg/dL (9-20); Calcium 9.2 mg/dL (8.4-10.2); Carbon Dioxide 26 mmol/L (22-32); Chloride 101 mmol/L (98-107); Creatine Kinase 83 U/L (55-170); Estimated Glomerular Filt Rate > 60 mL/min (>60); Globulin 2.3 g/dL (1.7-4.1); Glucose 165 mg/dL (70-99); HEMOLYSIS < 15 (0-50); Lipase 131 U/L (23-300); Magnesium 2.3 mg/dL (1.6-2.3); Sodium 137 mmol/L (137-145); Total Protein 7.1 g/dL (6.3-8.2)
[2024-11-25 04:35] LABS: PTT Partial Thromboplastin Tim 36 SECONDS (25.1-36.5)
[2024-11-25 04:40] LABS: NT-proBNP (BNP-Adult 18+) 596 pg/mL (<450); Troponin I 0.012 ng/mL (0.01-0.034)
[2024-11-25] MEDS: NITROGLYCERIN OINT 1 INCH/GM OINT...G. TOP (04:48)
--- NOTE | 2024-11-25 05:49 | PC.NURSE ---
Ambulatory to restroom without difficulty or assistance
--- NOTE | 2024-11-25 06:20 | PC.NURSE ---
Repeat troponin drawn from existing IV line without complications.
[2024-11-25 06:46] LABS: Troponin I < 0.012 ng/mL (0.01-0.034)
== END 2024-11-25 08:55 | disposition left against medical advice (07) ==
PROVIDERS: Family Medicine; Emergency Provider Emergency Medicine; Family Provider Internal Medicine; PCP Family Medicine
DX: R07.9 Chest pain, unspecified (principal); I10 Essential (primary) hypertension; I49.5 Sick sinus syndrome; Z79.02 Long term (current) use of antithrombotics/antiplatelets; I48.91 Unspecified atrial fibrillation; Z53.29 Procedure and treatment not carried out because of patient's decision for other reasons
CPT/HCPCS: 36415; 71045; 80053; 82550; 83605; 83690; 83735; 83880; 84484; 85025; 85610; 85730; 93005; 99283; 99284

== ENCOUNTER → 2024-11-30 13:31 | Outpatient (CLI) | payer MEDICARE, SELFPAY ==
--- NOTE | 2024-11-30 13:32 | DI.ECHO.S_ITS ---
[facility] : : [address] : : [place] : : [id number] : : Phone: [phone] Echocardiogram Report + + :Name: NAVDEEP SALMERON Study Date: 11/30/2024 Height: 71 in : :[facility] ReadingLocation: Weight: 180 lb : : Gender: Male BSA: 2.0 m2 : :: 1940 Age: 84 yrs BP: 138/80 mmHg: :Reason For Study: Mitral stenosis : :Ordering Physician: OBDULIO, : :MATT Performed By: David Ann : :Referring: MATT MAK : + + Interpretation Summary The left ventricle is normal in size. There is moderate concentric left ventricular hypertrophy. Moderate to severe proximal septal thickening. 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 Normal LV systolic function. The ejection fraction is estimated to be 60-65% which is normal. Previously LVEF 55 to 60%.. Elevated LV filling pressure. The right ventricle is normal in size and function. There is a pacemaker lead in the right ventricle. There is a calcific nodule in the posterior MV annulus seen on the prior exams as well. There is some restriction of posterior mitral leaflet. The mean gradient across mitral valve about 3.67 mmHg. Previously 4.7 mmHg. Overall mild mitral stenosis. No significant mitral stenosis. There is systolic anterior motion of the chordal apparatus. Mild to moderate eccentric mitral regurgitation. Previously mild. The aortic valve is trileaflet. There is mildly reduced leaflet mobility. There is mild aortic stenosis. There is no hemodynamically significant valvular aortic stenosis. There is mild tricuspid regurgitation. Right ventricular systolic pressure is estimated to be 35 mmHg plus the clinically estimated CVP which cannot be estimated on this exam. Procedure: A two-dimensional transthoracic echocardiogram with color flow and Doppler was performed. The study quality was technically adequate. Comparison is made with the echocardiogram of 01/05/2022. The patient has a paced rhythm. Left Ventricle: The left ventricle is normal in size. There is moderate concentric left ventricular hypertrophy. Moderate to severe proximal septal thickening. 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 The left ventricular ejection fraction is normal. The ejection fraction is estimated to be 60-65%. Septal motion is consistent with conduction abnormality. MV E/A: 0.68 Med Peak E' Jaquan: 3.3 cm/sec E/E' med: 32.8. Diastolic parameters suggest probable elevated filling pressures. Right Ventricle: The right ventricle is normal in size and function. There is a pacemaker lead in the right ventricle. Atria: The left atrium is borderline dilated. Right atrial size is normal. There is no Doppler evidence for an interatrial shunt. Mitral Valve: There is systolic anterior motion of the mitral valve. There is a calcific nodule in the posterior MV annulus seen on the prior exams as well. There is some restriction of posterior mitral leaflet. The mean gradient across mitral valve about 3.67 mmHg. Previously 4.7 mmHg. Overall mild mitral stenosis. No significant mitral stenosis. There is systolic anterior motion of the chordal apparatus. Mild to moderate eccentric mitral regurgitation. Previously mild. MV meanPG 3.65 mmHG, at HR of 63 BPM. There is mild to moderate mitral regurgitation. The mitral regurgitant jet is eccentrically directed. BP 138/80. Aortic Valve: The aortic valve is trileaflet. Thickening of the non-coronary aortic valve cusp. There is mildly reduced leaflet mobility. There is discrete nodular thickening of the non- coronary cusp. PADMINI noted with increased velocity in the LVOT. LVOT peak 2.2 m/s, LV max PG 18.6 mmHG. There is mild aortic stenosis. There is no hemodynamically significant valvular aortic stenosis. No aortic regurgitation is present. Tricuspid Valve: The tricuspid valve leaflets are thin and pliable. There is mild tricuspid regurgitation. Right ventricular systolic pressure is estimated to be 35 mmHg plus the clinically estimated CVP which cannot be estimated on this exam. Pulmonic Valve: The pulmonic valve is not well seen, but is grossly normal. There is a trace or physiologic amount of pulmonic regurgitation. Great Vessels: The aortic root is normal size. The ascending aorta is normal in size. The aortic arch is normal in size. The inferior vena cava was not visualized. Pericardium/ Pleura There has been no significant change since the previous study. MMode/2D Measurements & Calculations LVIDd: 3.9 cm LVOT diam: 2.1 cm LVIDs: 2.4 cm Ao root diam: 2.8 cm FS: 38.1 % asc Aorta Diam: 3.0 cm IVSd: 1.7 cm Ao Arch Diam (Prox Trans): 2.5 cm LVPWd: 1.3 cm LV call. diameter/BSA (cm/m^2): 1.9 LV sys. diameter/BSA (cm/m^2): 1.2 LA A2 area: 27.4 cm2 RA long axis: 5.6 cm LA A4 area: 14.5 cm2 RA area: 14.6 cm2 LA length (vol): 5.1 cm RA vol: 32.8 ml LA vol: 66.5 ml RA : 16.3 ml/m2 LA vol index: 33.0 ml/m2 RVD1 (basal): 3.8 cm RVD2 (mid): 3.2 cm TAPSE: 1.7 cm Doppler Measurements & Calculations Ao V2 max: 280.0 cm/sec LVOT Max Jaquan: 215.8 cm/sec Ao V2 mean: 187.4 cm/sec LV V1 max P.6 mmHg Ao max P.4 mmHg LV V1 VTI: 44.4 cm Ao mean P.2 mmHg VALERIY(I,D): 3.2 cm2 Ao V2 VTI: 49.7 cm VALERIY(V,D): 2.7 cm2 sev ratio: 0.89 VALERIY indexed to BSA (cm^2/m^2): 1.6 MV E max jaquan: 109.5 cm/sec TR max jaquan: 303.7 cm/sec MV A max jaquan: 162.1 cm/sec TR max P.9 mmHg MV E/A: 0.68 PA pr(Accel): 39.2 mmHg Med Peak E' Jaquan: 3.3 cm/sec E/E' med: 32.8 Lat Peak E' Jaquan: 6.4 cm/sec E/E' lat: 17.0 E/e' average: 24.9 MV dec time: 0.35 sec MVA(VTI): 3.3 cm2 MV V2 mean: 87.2 cm/sec SV(LVOT): 156.9 ml MV mean P.6 mmHg MV V2 VTI: 48.0 cm Reading Physician:06:44 PM
== END ==
LOC: ECHO 13:32
PROVIDERS: Family Provider Internal Medicine; PCP Family Medicine; Referring Provider Internal Medicine Cardiovascular Disease; Visit Provider Internal Medicine Cardiovascular Disease
DX: I08.3 Combined rheumatic disorders of mitral, aortic and tricuspid valves (principal); Z95.0 Presence of cardiac pacemaker
CPT/HCPCS: 93306

== ENCOUNTER → 2025-04-02 11:46 | Outpatient (CLI) | payer MEDICARE, SELFPAY ==
[2025-04-02 12:34] LABS: Alanine Aminotransferase 27 IU/L (<50); Albumin 4.7 g/dL (3.5-5.0); Albumin Globulin Ratio 2.0 (1.0-2.8); Alkaline Phosphatase 73 U/L (38-126); Blood Urea Nitrogen 22 mg/dL (9-20); Calcium 9.4 mg/dL (8.4-10.2); Carbon Dioxide 25 mmol/L (22-32); Chloride 100 mmol/L (98-107); Estimated Glomerular Filt Rate > 60 mL/min (>60); Globulin 2.3 g/dL (1.7-4.1); Glucose 169 mg/dL (70-99); HEMOLYSIS < 15 (0-50); Potassium 4.5 mmol/L (3.4-5.1); Sodium 136 mmol/L (137-145); Total Protein 7.0 g/dL (6.3-8.2)
[2025-04-02 12:38] LABS: Hemoglobin A1C% w Est Avg Glu 8.1 % (4.0-6.0)
== END ==
PROVIDERS: Family Provider Internal Medicine; PCP Family Medicine; Referring Provider Family Medicine; Visit Provider Family Medicine
DX: E11.9 Type 2 diabetes mellitus without complications (principal); E78.00 Pure hypercholesterolemia, unspecified
CPT/HCPCS: 36415; 80053; 83036

== ENCOUNTER → 2025-04-27 15:20 | Outpatient (CLI) | payer MEDICARE, SELFPAY ==
--- NOTE | 2025-04-27 15:21 | DI.RAD.S_ITS ---
PROCEDURE: XR CHEST 2V INDICATIONS: screening TECHNIQUE: 2 views of the chest were acquired. COMPARISON: [facility], CR, XR CHEST 1V, 11/25/2024, 3:56. [facility], CR, XR CHEST 2V, 11/30/2023, 14:32. FINDINGS: Surgical changes and devices: 2 lead cardiac pacemaker, unchanged. Median sternotomy wires. Lungs and pleura: Lungs are clear. No pleural effusions or pneumothorax. Mediastinum: Mediastinal contours are normal. Heart size is normal. Bones and chest wall: No suspicious bony abnormalities. Soft tissues appear unremarkable. IMPRESSION: No acute cardiopulmonary abnormality is seen. Dictated by: Tam Odonnell M.D. on 04/27/2025 at 17:16 Approved by: Tam Odonnell M.D. on 04/27/2025 at 17:17
--- NOTE | 2025-04-27 15:21 | DI.RAD.S_ITS ---
PROCEDURE: XR RIBS BI 3V INDICATIONS: screening TECHNIQUE: Two views of left and right ribs. COMPARISON: None. FINDINGS: Surgical changes and devices: Median sternotomy. 2 lead cardiac pacemaker. Bones and chest wall: No fractures or dislocations. No suspicious bony lesions. Overlying soft tissues appear unremarkable. Lungs and pleura: The visualized lung appears clear. No pleural effusions or pneumothorax are visible. IMPRESSION: Negative examination Dictated by: Tam Odonnell M.D. on 04/27/2025 at 17:18 Approved by: Tam Odonnell M.D. on 04/27/2025 at 17:19
== END ==
PROVIDERS: Family Provider Internal Medicine; PCP Family Medicine; Referring Provider Family Medicine; Visit Provider Family Medicine
DX: M95.4 Acquired deformity of chest and rib (principal); Z95.0 Presence of cardiac pacemaker
CPT/HCPCS: 71046; 71110

== ENCOUNTER → 2025-06-08 07:55 | Outpatient (CLI) | payer MEDICARE, SELFPAY ==
--- NOTE | 2025-06-08 08:04 | DIAB.MNT ---
Initial Diabetes Medical Nutrition Therapy Assessment Name: Mk Pinzon Date: 06/08/25 Time: 8-845am Dx: Type II Diabetes Provider: Dany Preferred Learning Style: Mk presents for initial DM visit. Diagnosed 35 years ago. Recent hgA1c of 8.1%. Increased glipizide since last PCP visit to 5mg BID. States he knows what is main issues is, stating it is chips and chocolate intake. States he thinks medication changes need to be considered. Not currently checking BG consistently. Tries to avoid bread and potato. Eating out, tries to reduce CHO and shares a meal with . States a previous provider once recommended 50g CHO per day. States he had success with this, but was too difficult. Diet Recall: 630am; coffee with cream or black with splenda, egg, yogurt, seaweed, veggies sn: nothing or chips or chocolate x2 pieces 12p: cheese, yogurt, seaweed OR just salad with salsa sn: nothing or chips 6p: stew homemade sn: nothing or 2 cookies Limited water, but reports overall fluids 64+oz, including decaf coffee 4c, decaf 2c, 12-14oz splenda homemade lemonade, sf soda 12oz, low Na V8 12-14oz, sf homemade chocolate drink States he does the cooking. Tries not to waste food which may result in increased intake. 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 States FBG always has been elevated, today 160mg/dl. Endorses pc readings as 92-160mg/dl. No consistent plan for checking. Date Pre Post Pre Post Pre Post HS Diabetes Medications: 1000mg Metformin BID 10mg Farxiga 5mg glipizide BID Pertinent Labs: HgA1c: 8.1% 03/2025 Past Medical History: (Last Reviewed 04/27/25 @ 15:03 by Merlin Saenz DO) Anemia (~2009) Asthma (~1951) Atrial fibrillation (~2018) Colon polyps Dyslipidemia Edema of both legs Gout (~2009) H/O non-insulin dependent diabetes mellitus Hearing loss (~1972) History of colon cancer (~2009) History of colon cancer History of prostate cancer (~2019) History of urinary incontinence (~2020) HTN (hypertension) (~2002) Hyperlipidemia Osteoarthritis (~1984) Osteoporosis (~1984) Skin cancer (~2018) Stroke (~2014) Type 2 diabetes mellitus Vertigo (~1979) Vision disorder Nutrition Rx: Carbohydrates: Meal:45g Snack:15-30g Nutrition Diagnosis: - Predicted excessive CHO intake r/t stage of change preparation aeb pt report of snack intake of chips/chocolate - Self monitoring deficit r/t previous in goal BG providing reason for him to d/c checks aeb pt report Intervention: This participant was very receptive. Provided appropriate educational handouts. Discussed the following topics: Completed intake assessment. Self-monitoring, how often, and when to check. Benefit of FBG checks. Recommended servings for carbohydrates at meals and snacks Medication management Physical activity Created SMART goals for patient self-care and success. Goals: Check FBG Reduce or avoid chip intake Follow-up: [facility] follow-up in 3-4 weeks Zohra Alvarez RDN, [facility] Certified Diabetes Care and Infant And Toddler Teacher P: [phone] Thank you for this referral
== END ==
LOC: DIET 07:58
PROVIDERS: Family Provider Internal Medicine; PCP Family Medicine; Referring Provider Family Medicine
DX: E11.9 Type 2 diabetes mellitus without complications (principal); Z71.3 Dietary counseling and surveillance; Z79.84 Long term (current) use of oral hypoglycemic drugs
CPT/HCPCS: 97802

== ENCOUNTER → 2025-06-29 07:55 | Outpatient (CLI) | payer MEDICARE, SELFPAY ==
--- NOTE | 2025-06-29 08:05 | DIAB.MNTFU ---
Follow-up Diabetes Medical Nutrition Therapy Assessment Name: Mk Pinzon Date: 06/29/25 Time: 8-510a Dx: Type II Diabetes Provider: Dany Terrazas presents for DM visit. Diagnosed 35 years ago. Recent hgA1c of 8.1%. Increased glipizide since last PCP visit to 5mg BID. Was previously taking 5mg and 2.5mg (afternoon and HS) States he has drastically reduced CHO intake. Reports he wants to get away from the idea that he should be able to have a more flexible diet r/t age. Endorses avoiding chips, candy, potatoes, and most fruits. no cookies anymore. eating maybe 1/3-1/2 fruit 3x per week. Urination q 1.5 hours overnight, which he thinks is more r/t bladder damage. States that most his meals incorporate a combination of yogurt, cheese or meat, veggies, pb and seaweed. States current diet is difficult to maintain, but wants to try. Reports one BG of 75mg/dl just prior to our last visit with mild symptoms of weakness. 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 Date Pre Post Pre Post Pre Post HS 85 121 149 139 143 134 150 142 Diabetes Medications: 1000mg Metformin BID 10mg Farxiga 5mg glipizide BID Pertinent Labs: HgA1c: 8.1% 03/2025 Past Medical History: (Last Reviewed 04/27/25 @ 15:03 by Merlin Saenz DO) Anemia (~2008) Asthma (~195) Atrial fibrillation (~2017) Colon polyps Dyslipidemia Edema of both legs Gout (~2009) H/O non-insulin dependent diabetes mellitus Hearing loss (~1972) History of colon cancer (~2009) History of colon cancer History of prostate cancer (~2019) History of urinary incontinence (~2020) HTN (hypertension) (~2002) Hyperlipidemia Osteoarthritis (~1984) Osteoporosis (~1984) Skin cancer (~2018) Stroke (~2014) Type 2 diabetes mellitus Vertigo (~1979) Vision disorder Nutrition Rx: Carbohydrates: Meal:45gSnack:15-30g Nutrition Diagnosis: - Predicted excessive CHO intake r/t stage of change preparation aeb pt report of snack intake of chips/chocolate- improved - Self monitoring deficit r/t previous in goal BG providing reason for him to d/c checks aeb pt report - improved Intervention: This participant was very receptive. Provided appropriate educational handouts. Discussed the following topics: Medication management: potential for slight increase in HS glipizide if PCP agrees, however this RD thinks he may benefit from goal of FBG <150mg/dl and hgA1c <8% given age and risk of low BG. Nutrition goals and recs Importance of fruit in moderation Potential for CGM sample for further evaluation, he declined at this time Created SMART goals for patient self-care and success. Goals: Check FBG- met Reduce or avoid chip intake - met Discuss BG goals and Dm meds with PCP next visit- new Follow-up: [facility] follow-up prn per pt request. Offered f/u but he would like to reach out prn for follow-up needs. Zohra Alvarez RDN, [facility] Certified Diabetes Care and Intelligence Chief P: [phone] Thank you for this referral
== END ==
LOC: DIET 07:55
PROVIDERS: Family Provider Internal Medicine; PCP Family Medicine; Referring Provider Family Medicine
DX: E11.9 Type 2 diabetes mellitus without complications (principal); Z71.3 Dietary counseling and surveillance; Z79.84 Long term (current) use of oral hypoglycemic drugs
CPT/HCPCS: 97803